=== PATIENT | male | born 1950 | race Hispanic/Latino ===

== ENCOUNTER 2021-08-17 21:02 | Emergency (ER) | payer MEDICARE ==
[~2021-08-17] VITALS: Ht 180.3 cm; Wt 97.5 kg
[2021-08-17] MEDS ORDERED: DEXAMETHASONE SOD PHOS 10 MG/1 ML VIAL IV STA (21:05)
[2021-08-17 21:40] LABS: HEMATOCRIT 44.2 % (38.2-49.6); HEMOGLOBIN 14.6 g/dL (14.0-18.0); LYMPHOCYTES # (AUTO) 0.6 (1.0-3.2); LYMPHOCYTES % 11.2 % (18.0-39.1); MEAN CORPUSCULAR HEMOGLOBIN 30.7 pg (28-32); MEAN CORPUSCULAR VOLUME 93.1 fL (81-99); MONOCYTES # (AUTO) 0.2 (0.2-0.8); MONOCYTES % 4.2 % (4.4-11.3); NEUTROPHILS # (AUTO) 4.2 (2.1-6.9); NEUTROPHILS % 84.4 % (38.7-80.0); PLATELET COUNT 169 x10e3/uL (140-360); RED BLOOD COUNT 4.75 x10e6/uL (4.3-5.7); RED CELL DISTRIBUTION WIDTH 13.4 % (11.7-14.4)
[2021-08-17 21:56] LABS: ALBUMIN 3.4 g/dL (3.5-5.0); ALBUMIN/GLOBULIN RATIO 1.1 (0.8-2.0); CALCIUM 8.2 mg/dL (8.4-10.2); CREATININE, SERUM 1.04 mg/dL (0.72-1.25)
[2021-08-17 22:02] LABS: CREATINE KINASE MB 1.2 ng/mL (0-5.0)
[2021-08-17] MEDS ORDERED: ONDANSETRON HCL INJ 2MG/ML 2ML 2 MG/ML VIAL IV STA (22:30)
[2021-08-17] MEDS ORDERED: ONDANSETRON HCL INJ 2MG/ML 2ML 2 MG/ML VIAL ONE (22:39)
[2021-08-18 00:58] LABS: CREATINE KINASE MB 1.3 ng/mL (0-5.0)
[2021-08-18 02:15] VITALS: BP 107/77
[2021-08-18] MEDS ORDERED: METOPROLOL TARTRATE 50 MG TAB ONE (03:57)
[2021-08-19] MEDS ORDERED: ATORVASTATIN PO (19:57)
[2021-08-19] MEDS ORDERED: METOPROLOL SUCC25 MG PO (19:57)
[2021-08-19] MEDS ORDERED: ZETIA10 MG PO (19:57)
== END 2021-08-18 02:10 | disposition home or self-care (01) ==
LOC: EDSEX 21:02 → ER 21:30
DX: U07.1 COVID-19 (principal); R07.89 Other chest pain; R06.02 Shortness of breath; R53.1 Weakness; I25.2 Old myocardial infarction
CPT/HCPCS: 36415; 71045; 80053; 82550; 82553; 83880; 84484; 85025; 93005; 99284; J0456; J1100; J2405; J7050

== ENCOUNTER 2021-08-19 10:00 | Inpatient (IN) | payer MEDICARE ==
[~2021-08-19] VITALS: Ht 185.4 cm; Wt 101.3 kg
[2021-08-19 10:58] LABS: BASOPHILS % 0.2 % (0.0-1.0); HEMATOCRIT 45.5 % (38.2-49.6); LYMPHOCYTES # (AUTO) 0.9 (1.0-3.2); LYMPHOCYTES % 15.6 % (18.0-39.1); MEAN CORPUSCULAR HEMOGLOBIN 30.2 pg (28-32); MEAN CORPUSCULAR VOLUME 91.5 fL (81-99); MONOCYTES # (AUTO) 0.3 (0.2-0.8); MONOCYTES % 4.7 % (4.4-11.3); NEUTROPHILS # (AUTO) 4.7 (2.1-6.9); NEUTROPHILS % 79.2 % (38.7-80.0); PLATELET COUNT 222 x10e3/uL (140-360); RED BLOOD COUNT 4.97 x10e6/uL (4.3-5.7); RED CELL DISTRIBUTION WIDTH 13.6 % (11.7-14.4)
[2021-08-19 11:11] LABS: INR 0.88; PROTHROMBIN TIME 12.7 seconds (11.9-14.5)
[2021-08-19 11:19] LABS: ALBUMIN 3.5 g/dL (3.5-5.0); ANION GAP 14.7 mmol/L (8-16); CREATININE, SERUM 1.25 mg/dL (0.72-1.25); POTASSIUM 3.7 mmol/L (3.5-5.1)
[2021-08-19 11:26] LABS: CREATINE KINASE MB 1.5 ng/mL (0-5.0)
[2021-08-19] MEDS ORDERED: ONDANSETRON HCL INJ 2MG/ML 2ML 2 MG/ML VIAL IV PRN (11:30)
[2021-08-19] MEDS ORDERED: DEXAMETHASONE SOD PHOS 10 MG/1 ML VIAL IV NR (13:45)
[2021-08-19 16:00] VITALS: BP 130/71
[2021-08-19 17:46] VITALS: BP 130/71
[2021-08-19 17:58] VITALS: BP 130/71
[2021-08-19] MEDS ORDERED: ZETIA10 MG PO (19:57)
[2021-08-19] MEDS ORDERED: METOPROLOL SUCC25 MG PO (19:57)
[2021-08-19] MEDS ORDERED: ATORVASTATIN PO (19:57)
[2021-08-19 20:00] VITALS: BP 128/74
[2021-08-19 21:00] VITALS: BP 128/74
[2021-08-20] VITALS (8 sets, daily range): BP systolic 124–143; BP diastolic 67–77
[2021-08-20 06:23] LABS: HEMATOCRIT 42.2 % (38.2-49.6); LYMPHOCYTES # (AUTO) 0.7 (1.0-3.2); LYMPHOCYTES % 10.4 % (18.0-39.1); MEAN CORPUSCULAR HEMOGLOBIN 30.2 pg (28-32); MEAN CORPUSCULAR HGB CONC 33.2 g/dL (31-35); MEAN CORPUSCULAR VOLUME 90.9 fL (81-99); MONOCYTES # (AUTO) 0.4 (0.2-0.8); MONOCYTES % 6.1 % (4.4-11.3); NEUTROPHILS # (AUTO) 5.2 (2.1-6.9); PLATELET COUNT 246 x10e3/uL (140-360); RED BLOOD COUNT 4.64 x10e6/uL (4.3-5.7); RED CELL DISTRIBUTION WIDTH 13.7 % (11.7-14.4)
[2021-08-20 07:06] LABS: ALBUMIN 3.1 g/dL (3.5-5.0); ALBUMIN/GLOBULIN RATIO 0.8 (0.8-2.0); ANION GAP 13.2 mmol/L (8-16); CALCIUM 8.8 mg/dL (8.4-10.2); CHOL/HDL RATIO 2.7 (3.9-4.7); CREATININE, SERUM 1.19 mg/dL (0.72-1.25); POTASSIUM 4.2 mmol/L (3.5-5.1)
[2021-08-20 07:07] LABS: CREATINE KINASE 96 IU/L (30-200)
[2021-08-20] MEDS: DEXAMETHASONE SOD PHOS 10 MG/1 ML VIAL IV SCH (09:26)
[2021-08-20 13:54] LABS: CREATINE KINASE MB 1.4 ng/mL (0-5.0)
[2021-08-20] MEDS: METOPROLOL SUCCINATE 25 MG TAB XL PO SCH (14:25)
[2021-08-20] MEDS: ATORVASTATIN 40 MG TAB PO SCH (14:26)
[2021-08-20] MEDS ORDERED: SODIUM CHLORIDE 0.9% 50ML 50 ML ONE (14:31)
[2021-08-20] MEDS ORDERED: ENOXAPARIN SOD INJ 40 MG/0.4 ML SYR SC SCH (17:00)
[2021-08-20] MEDS ORDERED: ZOLPIDEM TARTRATE 5 MG TAB PO PRN (21:00)
[2021-08-21] VITALS (8 sets, daily range): BP systolic 109–166; BP diastolic 68–87
[2021-08-21 05:37] LABS: BASOPHILS % 0.1 % (0.0-1.0); HEMATOCRIT 43.4 % (38.2-49.6); HEMOGLOBIN 14.6 g/dL (14.0-18.0); LYMPHOCYTES % 12.3 % (18.0-39.1); MEAN CORPUSCULAR HEMOGLOBIN 30.7 pg (28-32); MEAN CORPUSCULAR HGB CONC 33.6 g/dL (31-35); MEAN CORPUSCULAR VOLUME 91.2 fL (81-99); MONOCYTES # (AUTO) 0.6 (0.2-0.8); MONOCYTES % 7.7 % (4.4-11.3); NEUTROPHILS # (AUTO) 6.6 (2.1-6.9); NEUTROPHILS % 79.4 % (38.7-80.0); PLATELET COUNT 275 x10e3/uL (140-360); RED BLOOD COUNT 4.76 x10e6/uL (4.3-5.7); RED CELL DISTRIBUTION WIDTH 13.5 % (11.7-14.4)
[2021-08-21 06:04] LABS: ALBUMIN/GLOBULIN RATIO 0.8 (0.8-2.0); ANION GAP 14.1 mmol/L (8-16); CREATININE, SERUM 0.85 mg/dL (0.72-1.25); POTASSIUM 4.1 mmol/L (3.5-5.1)
[2021-08-21] MEDS ORDERED: ONDANSETRON HCL 4 MG ORAL DISINTEGRATING TAB PO PRN (08:00)
[2021-08-21] MEDS ORDERED: EZETIMIBE 10 MG TAB PO SCH (09:00)
[2021-08-21] MEDS: ATORVASTATIN 40 MG TAB PO SCH (09:15)
[2021-08-21] MEDS: DEXAMETHASONE SOD PHOS 10 MG/1 ML VIAL IV SCH (09:15)
[2021-08-21] MEDS: METOPROLOL SUCCINATE 25 MG TAB XL PO SCH (09:15)
[2021-08-21] MEDS ORDERED: ONDANSETRON HCL INJ 2MG/ML 2ML 2 MG/ML VIAL IV PRN (09:45)
[2021-08-21] MEDS: METOPROLOL TARTRATE 50 MG TAB PO SCH ×2 (09:45→16:44)
[2021-08-21] MEDS ORDERED: HYDRALAZINE HCL 25 MG TAB PO PRN (10:00)
[2021-08-21] MEDS: ASCORBIC ACID 500 MG TAB PO SCH ×2 (11:06→16:44)
[2021-08-21] MEDS: CHOLECALCIFEROL 1,000 UNIT TAB PO SCH (11:06)
[2021-08-21] MEDS: LACTOBACILLUS ACIDOPHILUS CAPSULE PO SCH ×3 (11:06→21:45)
[2021-08-21] MEDS: PIPERACILLIN/TAZOBACTAM 3.375 GM in SODIUM CHLORIDE 0.9% 50ML 50 ML IV SCH ×2 (11:06→16:45)
[2021-08-21] MEDS: MAGNESIUM OXIDE 400 MG TAB PO SCH ×2 (11:10→16:44)
[2021-08-21] MEDS: AZITHROMYCIN 250 MG TAB PO SCH (14:32)
[2021-08-21] MEDS: ENOXAPARIN SOD INJ 40 MG/0.4 ML SYR SC SCH (21:45)
[2021-08-22] VITALS (8 sets, daily range): BP systolic 106–153; BP diastolic 55–77
[2021-08-22] MEDS: PIPERACILLIN/TAZOBACTAM 3.375 GM in SODIUM CHLORIDE 0.9% 50ML 50 ML IV SCH ×3 (02:20→17:39)
[2021-08-22] MEDS: ASCORBIC ACID 500 MG TAB PO SCH ×2 (09:44→17:36)
[2021-08-22] MEDS: ENOXAPARIN SOD INJ 40 MG/0.4 ML SYR SC SCH ×2 (09:44→20:09)
[2021-08-22] MEDS: CHOLECALCIFEROL 1,000 UNIT TAB PO SCH (09:44)
[2021-08-22] MEDS: LACTOBACILLUS ACIDOPHILUS CAPSULE PO SCH ×3 (09:44→20:09)
[2021-08-22] MEDS: METOPROLOL TARTRATE 50 MG TAB PO SCH ×2 (09:45→17:35)
[2021-08-22] MEDS: DEXAMETHASONE SOD PHOS 10 MG/1 ML VIAL IV SCH (09:45)
[2021-08-22] MEDS: MAGNESIUM OXIDE 400 MG TAB PO SCH ×2 (09:45→17:36)
[2021-08-22] MEDS: AZITHROMYCIN 250 MG TAB PO SCH (14:30)
[2021-08-22] MEDS ORDERED: SODIUM CHLORIDE 0.9% 250ML 250 ML ONE (18:03)
[2021-08-22] MEDS ORDERED: ONDANSETRON HCL 4 MG ORAL DISINTEGRATING TAB PO PRN (18:45)
[2021-08-22] MEDS: GUAIFENESIN/CODEINE 5 ML LIQD PO PRN (20:09)
[2021-08-23] VITALS (7 sets, daily range): BP systolic 121–156; BP diastolic 64–89
[2021-08-23] MEDS: PIPERACILLIN/TAZOBACTAM 3.375 GM in SODIUM CHLORIDE 0.9% 50ML 50 ML IV SCH ×3 (02:07→17:31)
[2021-08-23] MEDS: GUAIFENESIN/CODEINE 5 ML LIQD PO PRN (02:48)
[2021-08-23] MEDS: DEXAMETHASONE SOD PHOS 10 MG/1 ML VIAL IV SCH (09:24)
[2021-08-23] MEDS: CHOLECALCIFEROL 1,000 UNIT TAB PO SCH (09:25)
[2021-08-23] MEDS: LACTOBACILLUS ACIDOPHILUS CAPSULE PO SCH ×3 (09:25→21:30)
[2021-08-23] MEDS: ENOXAPARIN SOD INJ 40 MG/0.4 ML SYR SC SCH ×2 (09:25→21:30)
[2021-08-23] MEDS: MAGNESIUM OXIDE 400 MG TAB PO SCH ×2 (09:25→17:00)
[2021-08-23] MEDS: ASCORBIC ACID 500 MG TAB PO SCH ×2 (09:25→17:31)
[2021-08-23] MEDS: METOPROLOL TARTRATE 50 MG TAB PO SCH ×2 (09:25→17:31)
[2021-08-23] MEDS: AZITHROMYCIN 250 MG TAB PO SCH (14:08)
[2021-08-24] VITALS (8 sets, daily range): BP systolic 117–150; BP diastolic 67–89
[2021-08-24] MEDS: PIPERACILLIN/TAZOBACTAM 3.375 GM in SODIUM CHLORIDE 0.9% 50ML 50 ML IV SCH ×3 (02:08→17:20)
[2021-08-24 06:22] LABS: BASOPHILS % 0.1 % (0.0-1.0); EOSINOPHILS % 0.3 % (0.0-6.0); HEMATOCRIT 45.4 % (38.2-49.6); HEMOGLOBIN 14.9 g/dL (14.0-18.0); LYMPHOCYTES # (AUTO) 0.9 (1.0-3.2); LYMPHOCYTES % 8.4 % (18.0-39.1); MEAN CORPUSCULAR HGB CONC 32.8 g/dL (31-35); MEAN CORPUSCULAR VOLUME 91.5 fL (81-99); MONOCYTES # (AUTO) 0.4 (0.2-0.8); NEUTROPHILS # (AUTO) 9.2 (2.1-6.9); NEUTROPHILS % 84.5 % (38.7-80.0); PLATELET COUNT 367 x10e3/uL (140-360); RED BLOOD COUNT 4.96 x10e6/uL (4.3-5.7); RED CELL DISTRIBUTION WIDTH 13.4 % (11.7-14.4)
[2021-08-24 06:43] LABS: CALCIUM 9.2 mg/dL (8.4-10.2); CREATININE, SERUM 0.91 mg/dL (0.72-1.25)
[2021-08-24] MEDS: DEXAMETHASONE SOD PHOS 10 MG/1 ML VIAL IV SCH (08:44)
[2021-08-24] MEDS: ENOXAPARIN SOD INJ 40 MG/0.4 ML SYR SC SCH ×2 (08:45→21:00)
[2021-08-24] MEDS: METOPROLOL TARTRATE 50 MG TAB PO SCH ×2 (08:45→17:20)
[2021-08-24] MEDS: ASCORBIC ACID 500 MG TAB PO SCH ×2 (08:45→17:20)
[2021-08-24] MEDS: LACTOBACILLUS ACIDOPHILUS CAPSULE PO SCH ×3 (08:45→21:00)
[2021-08-24] MEDS: MAGNESIUM OXIDE 400 MG TAB PO SCH ×2 (08:45→17:00)
[2021-08-24] MEDS: CHOLECALCIFEROL 1,000 UNIT TAB PO SCH (08:45)
[2021-08-25] VITALS (7 sets, daily range): BP systolic 128–164; BP diastolic 67–91
[2021-08-25] MEDS: PIPERACILLIN/TAZOBACTAM 3.375 GM in SODIUM CHLORIDE 0.9% 50ML 50 ML IV SCH ×3 (02:33→18:27)
[2021-08-25] MEDS: GUAIFENESIN/CODEINE 5 ML LIQD PO PRN ×2 (02:56→16:04)
[2021-08-25 05:50] LABS: BASOPHILS % 0.2 % (0.0-1.0); EOSINOPHILS # (AUTO) 0.1 (0.0-0.4); EOSINOPHILS % 0.8 % (0.0-6.0); HEMATOCRIT 42.5 % (38.2-49.6); HEMOGLOBIN 13.9 g/dL (14.0-18.0); LYMPHOCYTES # (AUTO) 0.6 (1.0-3.2); LYMPHOCYTES % 5.3 % (18.0-39.1); MEAN CORPUSCULAR HGB CONC 32.7 g/dL (31-35); MEAN CORPUSCULAR VOLUME 91.8 fL (81-99); MONOCYTES # (AUTO) 0.3 (0.2-0.8); MONOCYTES % 2.6 % (4.4-11.3); NEUTROPHILS # (AUTO) 9.5 (2.1-6.9); PLATELET COUNT 365 x10e3/uL (140-360); RED BLOOD COUNT 4.63 x10e6/uL (4.3-5.7); RED CELL DISTRIBUTION WIDTH 13.3 % (11.7-14.4)
[2021-08-25 06:33] LABS: ANION GAP 13.8 mmol/L (8-16); CALCIUM 8.9 mg/dL (8.4-10.2); CREATININE, SERUM 0.8 mg/dL (0.72-1.25); POTASSIUM 3.8 mmol/L (3.5-5.1)
[2021-08-25] MEDS: MAGNESIUM OXIDE 400 MG TAB PO SCH ×3 (09:00→17:00)
[2021-08-25] MEDS: METOPROLOL TARTRATE 50 MG TAB PO SCH ×2 (11:26→17:52)
[2021-08-25] MEDS: ASCORBIC ACID 500 MG TAB PO SCH ×2 (11:26→17:52)
[2021-08-25] MEDS: DEXAMETHASONE SOD PHOS 10 MG/1 ML VIAL IV SCH (11:26)
[2021-08-25] MEDS: CHOLECALCIFEROL 1,000 UNIT TAB PO SCH (11:26)
[2021-08-25] MEDS: LACTOBACILLUS ACIDOPHILUS CAPSULE PO SCH ×3 (11:26→21:00)
[2021-08-25] MEDS: ENOXAPARIN SOD INJ 40 MG/0.4 ML SYR SC SCH ×2 (11:27→21:00)
[2021-08-26] VITALS (11 sets, daily range): BP systolic 94–132; BP diastolic 59–99
[2021-08-26] MEDS: PIPERACILLIN/TAZOBACTAM 3.375 GM in SODIUM CHLORIDE 0.9% 50ML 50 ML IV SCH ×3 (02:00→18:30)
[2021-08-26 05:57] LABS: BASOPHILS % 0.2 % (0.0-1.0); EOSINOPHILS # (AUTO) 0.1 (0.0-0.4); EOSINOPHILS % 1.1 % (0.0-6.0); HEMATOCRIT 42.9 % (38.2-49.6); HEMOGLOBIN 14.3 g/dL (14.0-18.0); LYMPHOCYTES # (AUTO) 0.4 (1.0-3.2); LYMPHOCYTES % 3.5 % (18.0-39.1); MEAN CORPUSCULAR HEMOGLOBIN 30.7 pg (28-32); MEAN CORPUSCULAR HGB CONC 33.3 g/dL (31-35); MEAN CORPUSCULAR VOLUME 92.1 fL (81-99); MONOCYTES # (AUTO) 0.3 (0.2-0.8); MONOCYTES % 2.1 % (4.4-11.3); NEUTROPHILS # (AUTO) 11.5 (2.1-6.9); PLATELET COUNT 358 x10e3/uL (140-360); RED BLOOD COUNT 4.66 x10e6/uL (4.3-5.7); RED CELL DISTRIBUTION WIDTH 13.3 % (11.7-14.4)
[2021-08-26 06:36] LABS: ALBUMIN 2.6 g/dL (3.5-5.0); ALBUMIN/GLOBULIN RATIO 0.6 (0.8-2.0); ANION GAP 17.1 mmol/L (8-16); CREATININE, SERUM 0.83 mg/dL (0.72-1.25); POTASSIUM 4.1 mmol/L (3.5-5.1)
[2021-08-26] MEDS: MAGNESIUM OXIDE 400 MG TAB PO SCH ×2 (09:00→17:00)
[2021-08-26] MEDS: CHOLECALCIFEROL 1,000 UNIT TAB PO SCH (09:15)
[2021-08-26] MEDS: ENOXAPARIN SOD INJ 40 MG/0.4 ML SYR SC SCH ×2 (09:15→21:26)
[2021-08-26] MEDS: METOPROLOL TARTRATE 50 MG TAB PO SCH ×2 (09:15→18:30)
[2021-08-26] MEDS: ASCORBIC ACID 500 MG TAB PO SCH ×2 (09:15→18:01)
[2021-08-26] MEDS: LACTOBACILLUS ACIDOPHILUS CAPSULE PO SCH ×3 (09:15→18:31)
[2021-08-27] VITALS (9 sets, daily range): BP systolic 101–133; BP diastolic 66–88
[2021-08-27] MEDS: PIPERACILLIN/TAZOBACTAM 3.375 GM in SODIUM CHLORIDE 0.9% 50ML 50 ML IV SCH ×3 (02:29→18:19)
[2021-08-27 06:11] LABS: BASOPHILS % 0.2 % (0.0-1.0); EOSINOPHILS # (AUTO) 0.2 (0.0-0.4); EOSINOPHILS % 1.9 % (0.0-6.0); HEMATOCRIT 43.2 % (38.2-49.6); HEMOGLOBIN 14.7 g/dL (14.0-18.0); LYMPHOCYTES # (AUTO) 0.5 (1.0-3.2); MEAN CORPUSCULAR HEMOGLOBIN 30.4 pg (28-32); MEAN CORPUSCULAR VOLUME 89.4 fL (81-99); MONOCYTES # (AUTO) 0.2 (0.2-0.8); MONOCYTES % 2.1 % (4.4-11.3); NEUTROPHILS % 89.6 % (38.7-80.0); PLATELET COUNT 353 x10e3/uL (140-360); RED BLOOD COUNT 4.83 x10e6/uL (4.3-5.7); RED CELL DISTRIBUTION WIDTH 13.3 % (11.7-14.4)
[2021-08-27] MEDS: ASCORBIC ACID 500 MG TAB PO SCH ×2 (09:36→18:19)
[2021-08-27] MEDS: MAGNESIUM OXIDE 400 MG TAB PO SCH ×2 (09:36→18:19)
[2021-08-27] MEDS: ENOXAPARIN SOD INJ 40 MG/0.4 ML SYR SC SCH ×2 (09:36→21:27)
[2021-08-27] MEDS: LACTOBACILLUS ACIDOPHILUS CAPSULE PO SCH ×3 (09:36→21:27)
[2021-08-27] MEDS: CHOLECALCIFEROL 1,000 UNIT TAB PO SCH (09:36)
[2021-08-27] MEDS: METOPROLOL TARTRATE 50 MG TAB PO SCH ×2 (09:37→18:20)
[2021-08-27] MEDS ORDERED: LACTATED RINGER'S 500 ML INJ ONE (15:15)
[2021-08-27] MEDS: DEXAMETHASONE SOD PHOS 10 MG/1 ML VIAL IV SCH (18:19)
[2021-08-28] VITALS (24 sets, daily range): BP systolic 106–139; BP diastolic 65–83
[2021-08-28] MEDS: PIPERACILLIN/TAZOBACTAM 3.375 GM in SODIUM CHLORIDE 0.9% 50ML 50 ML IV SCH ×3 (01:50→16:26)
[2021-08-28] MEDS ORDERED: SODIUM CHLORIDE 0.9% 1000ML 1,000 ML ONE (04:18)
[2021-08-28 05:57] LABS: BASOPHILS % 0.1 % (0.0-1.0); HEMATOCRIT 41.6 % (38.2-49.6); HEMOGLOBIN 13.5 g/dL (14.0-18.0); LYMPHOCYTES # (AUTO) 0.3 (1.0-3.2); LYMPHOCYTES % 4.6 % (18.0-39.1); MEAN CORPUSCULAR HGB CONC 32.5 g/dL (31-35); MEAN CORPUSCULAR VOLUME 92.4 fL (81-99); MONOCYTES # (AUTO) 0.1 (0.2-0.8); MONOCYTES % 1.7 % (4.4-11.3); NEUTROPHILS # (AUTO) 6.9 (2.1-6.9); PLATELET COUNT 325 x10e3/uL (140-360); RED CELL DISTRIBUTION WIDTH 13.3 % (11.7-14.4)
[2021-08-28 06:27] LABS: ALBUMIN 2.1 g/dL (3.5-5.0); ALBUMIN/GLOBULIN RATIO 0.5 (0.8-2.0); ANION GAP 10.2 mmol/L (8-16); CALCIUM 8.7 mg/dL (8.4-10.2); CREATININE, SERUM 0.86 mg/dL (0.72-1.25); POTASSIUM 4.2 mmol/L (3.5-5.1)
[2021-08-28] MEDS: METOPROLOL TARTRATE 50 MG TAB PO SCH ×2 (07:30→16:25)
[2021-08-28] MEDS: LACTOBACILLUS ACIDOPHILUS CAPSULE PO SCH ×3 (07:31→20:42)
[2021-08-28] MEDS: CHOLECALCIFEROL 1,000 UNIT TAB PO SCH (07:31)
[2021-08-28] MEDS: MAGNESIUM OXIDE 400 MG TAB PO SCH ×2 (07:31→16:25)
[2021-08-28] MEDS: ASCORBIC ACID 500 MG TAB PO SCH ×2 (07:31→16:25)
[2021-08-28] MEDS: ENOXAPARIN SOD INJ 40 MG/0.4 ML SYR SC SCH ×2 (07:31→20:42)
[2021-08-28] MEDS: DEXAMETHASONE SOD PHOS 10 MG/1 ML VIAL IV SCH (16:25)
[2021-08-28] MEDS ORDERED: TEMAZEPAM 7.5 MG CAP PO PRN (21:30)
[2021-08-29] VITALS (16 sets, daily range): BP systolic 107–139; BP diastolic 64–74
[2021-08-29] MEDS: PIPERACILLIN/TAZOBACTAM 3.375 GM in SODIUM CHLORIDE 0.9% 50ML 50 ML IV SCH ×2 (02:40→09:12)
[2021-08-29 06:19] LABS: BASOPHILS % 0.1 % (0.0-1.0); HEMATOCRIT 39.4 % (38.2-49.6); LYMPHOCYTES # (AUTO) 0.4 (1.0-3.2); LYMPHOCYTES % 3.8 % (18.0-39.1); MEAN CORPUSCULAR HEMOGLOBIN 30.4 pg (28-32); MEAN CORPUSCULAR VOLUME 92.3 fL (81-99); MONOCYTES # (AUTO) 0.3 (0.2-0.8); MONOCYTES % 2.5 % (4.4-11.3); NEUTROPHILS # (AUTO) 9.3 (2.1-6.9); NEUTROPHILS % 92.8 % (38.7-80.0); PLATELET COUNT 361 x10e3/uL (140-360); RED BLOOD COUNT 4.27 x10e6/uL (4.3-5.7); RED CELL DISTRIBUTION WIDTH 13.2 % (11.7-14.4)
[2021-08-29 07:21] LABS: ALBUMIN 2.1 g/dL (3.5-5.0); ALBUMIN/GLOBULIN RATIO 0.5 (0.8-2.0); ANION GAP 10.3 mmol/L (8-16); CALCIUM 8.6 mg/dL (8.4-10.2); CREATININE, SERUM 0.79 mg/dL (0.72-1.25); POTASSIUM 4.3 mmol/L (3.5-5.1)
[2021-08-29] MEDS: METOPROLOL TARTRATE 50 MG TAB PO SCH ×2 (09:11→16:49)
[2021-08-29] MEDS: LACTOBACILLUS ACIDOPHILUS CAPSULE PO SCH ×3 (09:11→20:53)
[2021-08-29] MEDS: ASCORBIC ACID 500 MG TAB PO SCH ×2 (09:11→16:49)
[2021-08-29] MEDS: MAGNESIUM OXIDE 400 MG TAB PO SCH ×2 (09:11→16:49)
[2021-08-29] MEDS: CHOLECALCIFEROL 1,000 UNIT TAB PO SCH (09:11)
[2021-08-29] MEDS: ENOXAPARIN SOD INJ 40 MG/0.4 ML SYR SC SCH ×2 (09:11→20:53)
[2021-08-29] MEDS ORDERED: VECURONIUM BROMIDE FOR INJ 20 MG VIAL ONE (12:59)
[2021-08-29] MEDS ORDERED: WATER STERILE 10 ML VIAL ONE (12:59)
[2021-08-29] MEDS ORDERED: MIDAZOLAM HCL 2 MG/2 ML VIAL ONE (12:59)
[2021-08-29] MEDS ORDERED: ETOMIDATE 2 MG/ML 10 ML INJ IV ONE (12:59)
[2021-08-29] MEDS ORDERED: SUCCINYLCHOLINE CHLORIDE 20 MG/ML 10ML VIAL ONE (12:59)
[2021-08-29] MEDS ORDERED: HYDROXYZINE HCL 25 MG TAB PO PRN (19:00)
[2021-08-30] VITALS (17 sets, daily range): BP systolic 100–146; BP diastolic 56–76
[2021-08-30 04:45] LABS: BASOPHILS % 0.1 % (0.0-1.0); EOSINOPHILS # (AUTO) 0.1 (0.0-0.4); EOSINOPHILS % 0.8 % (0.0-6.0); HEMATOCRIT 40.7 % (38.2-49.6); HEMOGLOBIN 13.3 g/dL (14.0-18.0); LYMPHOCYTES # (AUTO) 0.4 (1.0-3.2); LYMPHOCYTES % 3.7 % (18.0-39.1); MEAN CORPUSCULAR HEMOGLOBIN 30.1 pg (28-32); MEAN CORPUSCULAR HGB CONC 32.7 g/dL (31-35); MEAN CORPUSCULAR VOLUME 92.1 fL (81-99); MONOCYTES # (AUTO) 0.4 (0.2-0.8); MONOCYTES % 3.1 % (4.4-11.3); NEUTROPHILS # (AUTO) 10.9 (2.1-6.9); NEUTROPHILS % 91.4 % (38.7-80.0); PLATELET COUNT 382 x10e3/uL (140-360); RED BLOOD COUNT 4.42 x10e6/uL (4.3-5.7); RED CELL DISTRIBUTION WIDTH 13.2 % (11.7-14.4)
[2021-08-30 05:05] LABS: ALBUMIN 2.1 g/dL (3.5-5.0); ALBUMIN/GLOBULIN RATIO 0.5 (0.8-2.0); ANION GAP 12.1 mmol/L (8-16); CALCIUM 8.4 mg/dL (8.4-10.2); CREATININE, SERUM 0.75 mg/dL (0.72-1.25); POTASSIUM 4.1 mmol/L (3.5-5.1)
[2021-08-30] MEDS: METOPROLOL TARTRATE 50 MG TAB PO SCH ×2 (10:15→17:00)
[2021-08-30] MEDS: MAGNESIUM OXIDE 400 MG TAB PO SCH (10:15)
[2021-08-30] MEDS: ASCORBIC ACID 500 MG TAB PO SCH (10:15)
[2021-08-30] MEDS: CHOLECALCIFEROL 1,000 UNIT TAB PO SCH (10:15)
[2021-08-30] MEDS: LACTOBACILLUS ACIDOPHILUS CAPSULE PO SCH (10:15)
[2021-08-30] MEDS: ENOXAPARIN SOD INJ 40 MG/0.4 ML SYR SC SCH (10:15)
[2021-08-30] MEDS: METOPROLOL TARTRATE INJ 1 MG/ML VIAL IV PRN (11:14)
[2021-08-30] MEDS ORDERED: ONDANSETRON HCL INJ 2MG/ML 2ML 2 MG/ML VIAL IV PRN (11:15)
[2021-08-30] MEDS ORDERED: DEXMEDETOMIDINE 400MCG/NS100ML 100 ML IV ONE (11:28)
[2021-08-30] MEDS ORDERED: SODIUM CHLORIDE 0.9% 1000ML 1,000 ML IV ONE (11:45)
[2021-08-30] MEDS: DEXAMETHASONE SOD PHOS 10 MG/1 ML VIAL IV SCH (12:17)
[2021-08-30] MEDS: FOLIC ACID MDV 1 MG in SODIUM CHLORIDE 0.9% 50ML 50 ML IV SCH (12:18)
[2021-08-30] MEDS: DOXYCYCLINE HYCLATE 100 MG in SODIUM CHLORIDE 0.9% 100 ML IV SCH ×2 (12:18→23:22)
[2021-08-30] MEDS: THIAMINE HCL INJ 100 MG/ML 2ML VIAL IV SCH (12:18)
[2021-08-30] MEDS: PIPERACILLIN/TAZOBACTAM 3.375 GM in SODIUM CHLORIDE 0.9% 50ML 50 ML IV SCH ×2 (13:00→20:28)
[2021-08-30] MEDS: FAMOTIDINE 20 MG/2 ML VIAL IV SCH (17:30)
[2021-08-30] MEDS: ENOXAPARIN SOD INJ 60 MG/0.6 ML SYR SC SCH (20:28)
[2021-08-30] MEDS: DEXMEDETOMIDINE 400MCG/NS100ML 100 ML IV PRN (22:41)
[2021-08-31] VITALS (25 sets, daily range): BP systolic 93–133; BP diastolic 45–71
[2021-08-31] MEDS: DEXMEDETOMIDINE 400MCG/NS100ML 100 ML IV PRN ×2 (02:06→09:46)
[2021-08-31] MEDS: PIPERACILLIN/TAZOBACTAM 3.375 GM in SODIUM CHLORIDE 0.9% 50ML 50 ML IV SCH ×3 (04:27→20:27)
[2021-08-31 07:45] LABS: BASOPHILS % 0.1 % (0.0-1.0); EOSINOPHILS # (AUTO) 0.1 (0.0-0.4); HEMATOCRIT 41.6 % (38.2-49.6); HEMOGLOBIN 13.7 g/dL (14.0-18.0); LYMPHOCYTES # (AUTO) 0.5 (1.0-3.2); MEAN CORPUSCULAR HEMOGLOBIN 30.6 pg (28-32); MEAN CORPUSCULAR HGB CONC 32.9 g/dL (31-35); MEAN CORPUSCULAR VOLUME 92.9 fL (81-99); MONOCYTES # (AUTO) 0.2 (0.2-0.8); MONOCYTES % 1.7 % (4.4-11.3); NEUTROPHILS # (AUTO) 12.4 (2.1-6.9); NEUTROPHILS % 92.4 % (38.7-80.0); PLATELET COUNT 317 x10e3/uL (140-360); RED BLOOD COUNT 4.48 x10e6/uL (4.3-5.7); RED CELL DISTRIBUTION WIDTH 13.2 % (11.7-14.4)
[2021-08-31 08:08] LABS: ALBUMIN 1.8 g/dL (3.5-5.0); ALBUMIN/GLOBULIN RATIO 0.4 (0.8-2.0); ANION GAP 13.4 mmol/L (8-16); CALCIUM 8.7 mg/dL (8.4-10.2); CREATININE, SERUM 0.8 mg/dL (0.72-1.25); POTASSIUM 4.4 mmol/L (3.5-5.1)
[2021-08-31] MEDS ORDERED: SODIUM CHLORIDE 0.9% 50ML 50 ML ONE (08:17)
[2021-08-31] MEDS: METOPROLOL TARTRATE 50 MG TAB PO SCH ×2 (09:00→17:00)
[2021-08-31] MEDS: THIAMINE HCL INJ 100 MG/ML 2ML VIAL IV SCH (09:41)
[2021-08-31] MEDS: DEXAMETHASONE SOD PHOS 10 MG/1 ML VIAL IV SCH (09:41)
[2021-08-31] MEDS: FAMOTIDINE 20 MG/2 ML VIAL IV SCH ×2 (09:41→18:14)
[2021-08-31] MEDS: ENOXAPARIN SOD INJ 60 MG/0.6 ML SYR SC SCH ×2 (09:42→20:27)
[2021-08-31] MEDS: FOLIC ACID MDV 1 MG in SODIUM CHLORIDE 0.9% 50ML 50 ML IV SCH (10:51)
[2021-08-31] MEDS: DOXYCYCLINE HYCLATE 100 MG in SODIUM CHLORIDE 0.9% 100 ML IV SCH ×2 (11:14→23:25)
[2021-08-31] MEDS ORDERED: SODIUM CHLORIDE 0.9% 1000ML 1,000 ML ONE (14:47)
[2021-08-31] MEDS: FENTANYL 2000MCG/NS 250 250 ML IV SCH (15:11)
[2021-08-31] MEDS: MIDAZOLAM HCL 5MG/ML 10ML VIAL 100 ML IV PRN ×2 (15:11→23:45)
[2021-08-31] MEDS: ROCURONIUM 1250MG/NS 250 250 ML IV PRN (15:15)
[2021-08-31] MEDS ORDERED: SODIUM CHLORIDE 0.9% 500ML 500 ML IV ONE (15:15)
[2021-08-31 16:52] LABS: ABG HCO3 22 mmol/L (22-26); ABG PCO2 51 mmHg (35-45); ABG PH 7.25 (7.35-7.45); ABG PO2 75 mmHg (80-105); ABG TCO2 24
[2021-08-31] MEDS: METOPROLOL TARTRATE INJ 1 MG/ML VIAL IV PRN (22:45)
[2021-09-01] VITALS (24 sets, daily range): BP systolic 2–126; BP diastolic 48–74
[2021-09-01] MEDS: METOPROLOL TARTRATE INJ 1 MG/ML VIAL IV PRN ×2 (02:15→05:50)
[2021-09-01] MEDS: PIPERACILLIN/TAZOBACTAM 3.375 GM in SODIUM CHLORIDE 0.9% 50ML 50 ML IV SCH ×3 (04:17→20:30)
[2021-09-01] MEDS: FENTANYL 2000MCG/NS 250 250 ML IV SCH ×3 (05:01→20:31)
[2021-09-01 05:18] LABS: BASOPHILS % 0.1 % (0.0-1.0); HEMATOCRIT 45.7 % (38.2-49.6); HEMOGLOBIN 14.4 g/dL (14.0-18.0); LYMPHOCYTES # (AUTO) 0.5 (1.0-3.2); LYMPHOCYTES % 2.4 % (18.0-39.1); MEAN CORPUSCULAR HEMOGLOBIN 30.2 pg (28-32); MEAN CORPUSCULAR HGB CONC 31.5 g/dL (31-35); MEAN CORPUSCULAR VOLUME 95.8 fL (81-99); MONOCYTES # (AUTO) 0.5 (0.2-0.8); MONOCYTES % 2.6 % (4.4-11.3); NEUTROPHILS # (AUTO) 19.5 (2.1-6.9); NEUTROPHILS % 93.7 % (38.7-80.0); PLATELET COUNT 465 x10e3/uL (140-360); RED BLOOD COUNT 4.77 x10e6/uL (4.3-5.7); RED CELL DISTRIBUTION WIDTH 13.6 % (11.7-14.4)
[2021-09-01 05:36] LABS: ALBUMIN 1.7 g/dL (3.5-5.0); ALBUMIN/GLOBULIN RATIO 0.3 (0.8-2.0); CREATININE, SERUM 1.1 mg/dL (0.72-1.25)
[2021-09-01] MEDS ORDERED: SODIUM CHLORIDE 0.9% 50ML 50 ML ONE (08:27)
[2021-09-01] MEDS: DEXAMETHASONE SOD PHOS 10 MG/1 ML VIAL IV SCH (08:33)
[2021-09-01] MEDS: FAMOTIDINE 20 MG/2 ML VIAL IV SCH ×2 (08:34→16:48)
[2021-09-01] MEDS: THIAMINE HCL INJ 100 MG/ML 2ML VIAL IV SCH (08:34)
[2021-09-01] MEDS: ENOXAPARIN SOD INJ 60 MG/0.6 ML SYR SC SCH ×2 (08:34→20:30)
[2021-09-01] MEDS ORDERED: METOPROLOL TARTRATE 50 MG TAB NG SCH (09:00)
[2021-09-01] MEDS: MIDAZOLAM HCL 5MG/ML 10ML VIAL 100 ML IV PRN ×2 (09:45→20:31)
[2021-09-01] MEDS: FOLIC ACID 1 MG TAB NG SCH (10:40)
[2021-09-01] MEDS: DOXYCYCLINE HYCLATE 100 MG in SODIUM CHLORIDE 0.9% 100 ML IV SCH ×2 (11:45→23:36)
[2021-09-01] MEDS ORDERED: SODIUM CHLORIDE 0.9% 500ML 500 ML IV ONE (12:30)
[2021-09-01 12:56] LABS: ABG HCO3 23 mmol/L (22-26); ABG PCO2 55 mmHg (35-45); ABG PH 7.24 (7.35-7.45); ABG PO2 93 mmHg (80-105)
[2021-09-01 12:57] LABS: ABG TCO2 25
[2021-09-01] MEDS ORDERED: PIPERACILLIN/TAZOBACTAM 3.375 GM VIAL ONE (20:19)
[2021-09-01] MEDS: ROCURONIUM 1250MG/NS 250 250 ML IV PRN (20:30)
[2021-09-01] MEDS: METOPROLOL TARTRATE 50 MG TAB PO SCH (20:30)
[2021-09-02] VITALS (24 sets, daily range): BP systolic 87–144; BP diastolic 49–81
[2021-09-02] MEDS: PIPERACILLIN/TAZOBACTAM 3.375 GM in SODIUM CHLORIDE 0.9% 50ML 50 ML IV SCH ×3 (04:31→19:55)
[2021-09-02] MEDS: MIDAZOLAM HCL 5MG/ML 10ML VIAL 100 ML IV PRN ×2 (04:32→19:56)
[2021-09-02 05:00] LABS: BASOPHILS % 0.1 % (0.0-1.0); HEMATOCRIT 44.3 % (38.2-49.6); HEMOGLOBIN 13.4 g/dL (14.0-18.0); LYMPHOCYTES # (AUTO) 0.5 (1.0-3.2); LYMPHOCYTES % 3.7 % (18.0-39.1); MEAN CORPUSCULAR HEMOGLOBIN 30.2 pg (28-32); MEAN CORPUSCULAR HGB CONC 30.2 g/dL (31-35); MONOCYTES # (AUTO) 0.6 (0.2-0.8); NEUTROPHILS # (AUTO) 13.4 (2.1-6.9); NEUTROPHILS % 91.4 % (38.7-80.0); PLATELET COUNT 410 x10e3/uL (140-360); RED BLOOD COUNT 4.43 x10e6/uL (4.3-5.7); RED CELL DISTRIBUTION WIDTH 13.9 % (11.7-14.4)
[2021-09-02 05:37] LABS: ALBUMIN 1.6 g/dL (3.5-5.0); ALBUMIN/GLOBULIN RATIO 0.4 (0.8-2.0); CALCIUM 8.2 mg/dL (8.4-10.2); CREATININE, SERUM 1.17 mg/dL (0.72-1.25)
[2021-09-02] MEDS: METOPROLOL TARTRATE 50 MG TAB PO SCH ×2 (08:34→20:34)
[2021-09-02] MEDS: FOLIC ACID 1 MG TAB NG SCH (08:34)
[2021-09-02] MEDS: ENOXAPARIN SOD INJ 60 MG/0.6 ML SYR SC SCH (08:34)
[2021-09-02] MEDS: SENNA-S TABLET PO SCH (08:34)
[2021-09-02] MEDS: FAMOTIDINE 20 MG/2 ML VIAL IV SCH ×2 (08:34→16:15)
[2021-09-02] MEDS: THIAMINE HCL INJ 100 MG/ML 2ML VIAL IV SCH (08:34)
[2021-09-02] MEDS: DEXAMETHASONE SOD PHOS 10 MG/1 ML VIAL IV SCH (08:34)
[2021-09-02 09:55] LABS: ABG HCO3 25 mmol/L (22-26); ABG PCO2 56 mmHg (35-45); ABG PH 7.25 (7.35-7.45); ABG PO2 98 mmHg (80-105); ABG TCO2 26
[2021-09-02] MEDS ORDERED: NOREPINEPHRINE 8 MG/D5W 250 ML 250 ML IV SCH (11:15)
[2021-09-02] MEDS ORDERED: FUROSEMIDE INJ 10 MG/ML 2 ML VIAL IV NR (11:15)
[2021-09-02] MEDS: FENTANYL 2000MCG/NS 250 250 ML IV SCH ×2 (11:31→19:56)
[2021-09-02] MEDS: DOXYCYCLINE HYCLATE 100 MG in SODIUM CHLORIDE 0.9% 100 ML IV SCH ×2 (12:11→23:23)
[2021-09-03] VITALS (25 sets, daily range): BP systolic 92–131; BP diastolic 49–69
[2021-09-03] MEDS: PIPERACILLIN/TAZOBACTAM 3.375 GM in SODIUM CHLORIDE 0.9% 50ML 50 ML IV SCH ×3 (04:04→20:00)
[2021-09-03 05:06] LABS: BASOPHILS % 0.1 % (0.0-1.0); EOSINOPHILS % 0.1 % (0.0-6.0); HEMATOCRIT 45.9 % (38.2-49.6); HEMOGLOBIN 13.9 g/dL (14.0-18.0); LYMPHOCYTES # (AUTO) 0.6 (1.0-3.2); LYMPHOCYTES % 5.1 % (18.0-39.1); MEAN CORPUSCULAR HEMOGLOBIN 30.3 pg (28-32); MEAN CORPUSCULAR HGB CONC 30.3 g/dL (31-35); MONOCYTES # (AUTO) 0.7 (0.2-0.8); MONOCYTES % 5.9 % (4.4-11.3); NEUTROPHILS # (AUTO) 10.4 (2.1-6.9); PLATELET COUNT 396 x10e3/uL (140-360); RED BLOOD COUNT 4.59 x10e6/uL (4.3-5.7); RED CELL DISTRIBUTION WIDTH 14.1 % (11.7-14.4)
[2021-09-03 06:02] LABS: ALBUMIN 1.6 g/dL (3.5-5.0); ALBUMIN/GLOBULIN RATIO 0.4 (0.8-2.0); CALCIUM 8.4 mg/dL (8.4-10.2); POTASSIUM 4.6 mmol/L (3.5-5.1)
[2021-09-03 06:30] LABS: ANION GAP 10.6 mmol/L (8-16); CREATININE, SERUM 0.89 mg/dL (0.72-1.25)
[2021-09-03] MEDS: FENTANYL 2000MCG/NS 250 250 ML IV SCH ×2 (07:59→18:01)
[2021-09-03] MEDS: METOPROLOL TARTRATE 50 MG TAB PO SCH ×2 (08:38→20:01)
[2021-09-03] MEDS: FAMOTIDINE 20 MG/2 ML VIAL IV SCH ×2 (08:38→16:45)
[2021-09-03] MEDS: FOLIC ACID 1 MG TAB NG SCH (08:38)
[2021-09-03] MEDS: SENNA-S TABLET PO SCH (08:38)
[2021-09-03] MEDS: DEXAMETHASONE SOD PHOS 10 MG/1 ML VIAL IV SCH (08:38)
[2021-09-03] MEDS: THIAMINE HCL INJ 100 MG/ML 2ML VIAL IV SCH (08:38)
[2021-09-03] MEDS: ENOXAPARIN SOD INJ 40 MG/0.4 ML SYR SC SCH (08:39)
[2021-09-03 10:23] LABS: ABG PCO2 56 mmHg (35-45); ABG PH 7.29 (7.35-7.45)
[2021-09-03 10:24] LABS: ABG HCO3 27 mmol/L (22-26); ABG PO2 60 mmHg (80-105); ABG TCO2 29
[2021-09-03] MEDS ORDERED: BISACODYL 10 MG SUPP PR ONE (10:30)
[2021-09-03] MEDS ORDERED: MAGNESIUM HYDROXIDE 30 ML UDC PO ONE (10:30)
[2021-09-03] MEDS: ROCURONIUM 1250MG/NS 250 250 ML IV PRN (11:19)
[2021-09-03] MEDS: DOXYCYCLINE HYCLATE 100 MG in SODIUM CHLORIDE 0.9% 100 ML IV SCH ×2 (11:19→22:52)
[2021-09-03] MEDS: MIDAZOLAM HCL 5MG/ML 10ML VIAL 100 ML IV PRN ×2 (11:20→20:00)
[2021-09-04] VITALS (26 sets, daily range): BP systolic 90–135; BP diastolic 53–66
[2021-09-04] MEDS: FENTANYL 2000MCG/NS 250 250 ML IV SCH ×3 (03:00→19:50)
[2021-09-04] MEDS: PIPERACILLIN/TAZOBACTAM 3.375 GM in SODIUM CHLORIDE 0.9% 50ML 50 ML IV SCH ×3 (03:32→20:23)
[2021-09-04 05:10] LABS: BASOPHILS % 0.1 % (0.0-1.0); HEMATOCRIT 45.6 % (38.2-49.6); HEMOGLOBIN 13.9 g/dL (14.0-18.0); LYMPHOCYTES # (AUTO) 0.6 (1.0-3.2); LYMPHOCYTES % 5.1 % (18.0-39.1); MEAN CORPUSCULAR HGB CONC 30.5 g/dL (31-35); MEAN CORPUSCULAR VOLUME 98.5 fL (81-99); MONOCYTES # (AUTO) 0.9 (0.2-0.8); MONOCYTES % 7.7 % (4.4-11.3); NEUTROPHILS # (AUTO) 9.7 (2.1-6.9); NEUTROPHILS % 85.3 % (38.7-80.0); PLATELET COUNT 376 x10e3/uL (140-360); RED BLOOD COUNT 4.63 x10e6/uL (4.3-5.7); RED CELL DISTRIBUTION WIDTH 14.2 % (11.7-14.4)
[2021-09-04 05:46] LABS: ALBUMIN 1.6 g/dL (3.5-5.0); ALBUMIN/GLOBULIN RATIO 0.4 (0.8-2.0); ANION GAP 10.2 mmol/L (8-16); CALCIUM 8.1 mg/dL (8.4-10.2); CREATININE, SERUM 1.06 mg/dL (0.72-1.25); POTASSIUM 5.2 mmol/L (3.5-5.1)
[2021-09-04] MEDS: MIDAZOLAM HCL 5MG/ML 10ML VIAL 100 ML IV PRN ×3 (08:31→19:50)
[2021-09-04 08:43] LABS: ABG HCO3 28 mmol/L (22-26); ABG PCO2 59 mmHg (35-45); ABG PH 7.29 (7.35-7.45); ABG PO2 107 mmHg (80-105); ABG TCO2 30
[2021-09-04] MEDS: FOLIC ACID 1 MG TAB NG SCH (09:00)
[2021-09-04] MEDS: THIAMINE HCL INJ 100 MG/ML 2ML VIAL IV SCH (09:00)
[2021-09-04] MEDS: DEXAMETHASONE SOD PHOS 10 MG/1 ML VIAL IV SCH (09:00)
[2021-09-04] MEDS: FAMOTIDINE 20 MG/2 ML VIAL IV SCH ×2 (09:00→16:44)
[2021-09-04] MEDS: SENNA-S TABLET PO SCH (09:01)
[2021-09-04] MEDS: METOPROLOL TARTRATE 50 MG TAB PO SCH ×2 (09:01→20:23)
[2021-09-04] MEDS: ENOXAPARIN SOD INJ 40 MG/0.4 ML SYR SC SCH (09:01)
[2021-09-04] MEDS ORDERED: SODIUM CHLORIDE 0.9% 50ML 50 ML ONE (10:52)
[2021-09-04] MEDS ORDERED: MINERAL OIL 132 ML BTL PR ONE (11:00)
[2021-09-04] MEDS: DOXYCYCLINE HYCLATE 100 MG in SODIUM CHLORIDE 0.9% 100 ML IV SCH ×2 (11:18→23:04)
[2021-09-04 14:13] LABS: ABG PCO2 53 mmHg (35-45); ABG PH 7.32 (7.35-7.45)
[2021-09-04 14:14] LABS: ABG HCO3 27 mmol/L (22-26); ABG PO2 71 mmHg (80-105); ABG TCO2 29
[2021-09-04] MEDS ORDERED: DEXTROSE 50% SYRINGE 50 ML IV STA (14:41)
[2021-09-04] MEDS ORDERED: INSULIN REGULAR, HUMAN 100 UNIT/1 ML IV ONE (14:45)
[2021-09-04] MEDS: ROCURONIUM 1250MG/NS 250 250 ML IV PRN (20:23)
[2021-09-05] VITALS (24 sets, daily range): BP systolic 94–136; BP diastolic 45–65
[2021-09-05] MEDS: PIPERACILLIN/TAZOBACTAM 3.375 GM in SODIUM CHLORIDE 0.9% 50ML 50 ML IV SCH ×3 (04:06→20:02)
[2021-09-05 07:51] LABS: BASOPHILS % 0.2 % (0.0-1.0); EOSINOPHILS # (AUTO) 0.1 (0.0-0.4); EOSINOPHILS % 0.5 % (0.0-6.0); HEMATOCRIT 42.6 % (38.2-49.6); HEMOGLOBIN 13.3 g/dL (14.0-18.0); LYMPHOCYTES # (AUTO) 0.9 (1.0-3.2); LYMPHOCYTES % 7.5 % (18.0-39.1); MEAN CORPUSCULAR HEMOGLOBIN 30.4 pg (28-32); MEAN CORPUSCULAR HGB CONC 31.2 g/dL (31-35); MEAN CORPUSCULAR VOLUME 97.3 fL (81-99); MONOCYTES # (AUTO) 0.7 (0.2-0.8); MONOCYTES % 5.4 % (4.4-11.3); NEUTROPHILS # (AUTO) 10.1 (2.1-6.9); NEUTROPHILS % 83.7 % (38.7-80.0); PLATELET COUNT 353 x10e3/uL (140-360); RED BLOOD COUNT 4.38 x10e6/uL (4.3-5.7); RED CELL DISTRIBUTION WIDTH 13.8 % (11.7-14.4)
[2021-09-05 08:11] LABS: ALBUMIN 1.7 g/dL (3.5-5.0); ALBUMIN/GLOBULIN RATIO 0.4 (0.8-2.0); ANION GAP 10.7 mmol/L (8-16); CALCIUM 8.2 mg/dL (8.4-10.2); CREATININE, SERUM 0.81 mg/dL (0.72-1.25); POTASSIUM 4.7 mmol/L (3.5-5.1)
[2021-09-05] MEDS: FOLIC ACID 1 MG TAB NG SCH (08:24)
[2021-09-05] MEDS: FAMOTIDINE 20 MG/2 ML VIAL IV SCH ×2 (08:24→17:01)
[2021-09-05] MEDS: DEXAMETHASONE SOD PHOS 10 MG/1 ML VIAL IV SCH (08:24)
[2021-09-05] MEDS: THIAMINE HCL INJ 100 MG/ML 2ML VIAL IV SCH (08:24)
[2021-09-05] MEDS: ENOXAPARIN SOD INJ 40 MG/0.4 ML SYR SC SCH (08:25)
[2021-09-05] MEDS: METOPROLOL TARTRATE 50 MG TAB PO SCH ×2 (08:25→21:00)
[2021-09-05] MEDS: SENNA-S TABLET PO SCH (08:25)
[2021-09-05] MEDS: FENTANYL 2000MCG/NS 250 250 ML IV SCH ×3 (08:28→18:42)
[2021-09-05 09:57] LABS: ABG HCO3 28 mmol/L (22-26); ABG PCO2 52 mmHg (35-45); ABG PH 7.34 (7.35-7.45); ABG PO2 78 mmHg (80-105); ABG TCO2 29
[2021-09-05] MEDS ORDERED: ALBUMIN 25% 25GM 100ML 0.25 GM/ML BTL IV SCH (10:15)
[2021-09-05] MEDS: FUROSEMIDE INJ 10 MG/ML 4 ML VIAL IV SCH ×2 (10:44→20:02)
[2021-09-05] MEDS: DOXYCYCLINE HYCLATE 100 MG in SODIUM CHLORIDE 0.9% 100 ML IV SCH (10:44)
[2021-09-05] MEDS: ALBUMIN 25% 25GM 100ML 100 ML IV SCH ×2 (10:44→20:02)
[2021-09-05] MEDS: MIDAZOLAM HCL 5MG/ML 10ML VIAL 100 ML IV PRN ×2 (13:19→20:27)
[2021-09-06] VITALS (24 sets, daily range): BP systolic 112–210; BP diastolic 43–80
[2021-09-06] MEDS: DOXYCYCLINE HYCLATE 100 MG in SODIUM CHLORIDE 0.9% 100 ML IV SCH ×3 (00:11→22:51)
[2021-09-06] MEDS: ALBUMIN 25% 25GM 100ML 100 ML IV SCH (03:05)
[2021-09-06] MEDS: PIPERACILLIN/TAZOBACTAM 3.375 GM in SODIUM CHLORIDE 0.9% 50ML 50 ML IV SCH ×3 (04:09→20:20)
[2021-09-06] MEDS: FENTANYL 2000MCG/NS 250 250 ML IV SCH ×3 (04:40→23:46)
[2021-09-06 05:23] LABS: BASOPHILS % 0.2 % (0.0-1.0); EOSINOPHILS % 0.2 % (0.0-6.0); HEMATOCRIT 34.7 % (38.2-49.6); HEMOGLOBIN 10.6 g/dL (14.0-18.0); LYMPHOCYTES # (AUTO) 0.8 (1.0-3.2); LYMPHOCYTES % 8.5 % (18.0-39.1); MEAN CORPUSCULAR HEMOGLOBIN 30.1 pg (28-32); MEAN CORPUSCULAR HGB CONC 30.5 g/dL (31-35); MEAN CORPUSCULAR VOLUME 98.6 fL (81-99); MONOCYTES # (AUTO) 0.5 (0.2-0.8); MONOCYTES % 4.8 % (4.4-11.3); NEUTROPHILS # (AUTO) 8.1 (2.1-6.9); NEUTROPHILS % 83.4 % (38.7-80.0); PLATELET COUNT 255 x10e3/uL (140-360); RED BLOOD COUNT 3.52 x10e6/uL (4.3-5.7); RED CELL DISTRIBUTION WIDTH 13.7 % (11.7-14.4)
[2021-09-06 05:38] LABS: ALBUMIN 3.1 g/dL (3.5-5.0); ALBUMIN/GLOBULIN RATIO 1.2 (0.8-2.0); ANION GAP 14.2 mmol/L (8-16); CALCIUM 8.2 mg/dL (8.4-10.2); CREATININE, SERUM 0.97 mg/dL (0.72-1.25); POTASSIUM 4.2 mmol/L (3.5-5.1)
[2021-09-06] MEDS: METOPROLOL TARTRATE INJ 1 MG/ML VIAL IV PRN ×2 (06:39→17:08)
[2021-09-06] MEDS: DEXAMETHASONE SOD PHOS 10 MG/1 ML VIAL IV SCH (08:21)
[2021-09-06] MEDS: FAMOTIDINE 20 MG/2 ML VIAL IV SCH ×2 (08:21→16:27)
[2021-09-06] MEDS: THIAMINE HCL INJ 100 MG/ML 2ML VIAL IV SCH (08:21)
[2021-09-06] MEDS: FOLIC ACID 1 MG TAB NG SCH (08:21)
[2021-09-06] MEDS: SENNA-S TABLET PO SCH (08:22)
[2021-09-06] MEDS: METOPROLOL TARTRATE 50 MG TAB PO SCH ×2 (08:22→20:20)
[2021-09-06] MEDS: ENOXAPARIN SOD INJ 40 MG/0.4 ML SYR SC SCH (08:22)
[2021-09-06 09:18] LABS: ABG PCO2 53 mmHg (35-45); ABG PH 7.39 (7.35-7.45)
[2021-09-06 09:19] LABS: ABG HCO3 32 mmol/L (22-26); ABG PO2 69 mmHg (80-105); ABG TCO2 33
[2021-09-06] MEDS: MIDAZOLAM HCL 5MG/ML 10ML VIAL 100 ML IV PRN ×2 (09:30→18:42)
[2021-09-06] MEDS: ROCURONIUM 1250MG/NS 250 250 ML IV PRN (12:47)
[2021-09-06] MEDS: HYDRALAZINE HCL 20 MG/ML VIAL IV PRN (16:55)
[2021-09-07] VITALS (28 sets, daily range): BP systolic 54–221; BP diastolic 39–72
[2021-09-07] MEDS: MIDAZOLAM HCL 5MG/ML 10ML VIAL 100 ML IV PRN ×5 (01:52→23:52)
[2021-09-07] MEDS: PIPERACILLIN/TAZOBACTAM 3.375 GM in SODIUM CHLORIDE 0.9% 50ML 50 ML IV SCH ×3 (03:44→20:00)
[2021-09-07 06:06] LABS: BASOPHILS % 0.3 % (0.0-1.0); EOSINOPHILS % 0.3 % (0.0-6.0); HEMATOCRIT 34.8 % (38.2-49.6); HEMOGLOBIN 10.8 g/dL (14.0-18.0); LYMPHOCYTES # (AUTO) 0.7 (1.0-3.2); LYMPHOCYTES % 6.2 % (18.0-39.1); MEAN CORPUSCULAR VOLUME 96.7 fL (81-99); MONOCYTES # (AUTO) 0.5 (0.2-0.8); MONOCYTES % 4.8 % (4.4-11.3); NEUTROPHILS # (AUTO) 9.3 (2.1-6.9); NEUTROPHILS % 83.3 % (38.7-80.0); PLATELET COUNT 307 x10e3/uL (140-360); RED CELL DISTRIBUTION WIDTH 13.7 % (11.7-14.4)
[2021-09-07 06:21] LABS: ALBUMIN 2.4 g/dL (3.5-5.0); ALBUMIN/GLOBULIN RATIO 0.8 (0.8-2.0); ANION GAP 14.1 mmol/L (8-16); CALCIUM 8.5 mg/dL (8.4-10.2); CREATININE, SERUM 0.74 mg/dL (0.72-1.25); POTASSIUM 4.1 mmol/L (3.5-5.1)
[2021-09-07] MEDS: HYDRALAZINE HCL 20 MG/ML VIAL IV PRN (06:35)
[2021-09-07] MEDS: METOPROLOL TARTRATE INJ 1 MG/ML VIAL IV PRN (07:01)
[2021-09-07] MEDS: METOPROLOL TARTRATE 50 MG TAB PO SCH ×2 (07:05→20:16)
[2021-09-07] MEDS: SENNA-S TABLET PO SCH (08:39)
[2021-09-07] MEDS: ENOXAPARIN SOD INJ 40 MG/0.4 ML SYR SC SCH (08:39)
[2021-09-07] MEDS: FAMOTIDINE 20 MG/2 ML VIAL IV SCH ×2 (08:39→17:09)
[2021-09-07] MEDS: FOLIC ACID 1 MG TAB NG SCH (08:39)
[2021-09-07] MEDS: THIAMINE HCL INJ 100 MG/ML 2ML VIAL IV SCH (08:39)
[2021-09-07 09:08] LABS: ABG HCO3 32 mmol/L (22-26); ABG PCO2 55 mmHg (35-45); ABG PH 7.37 (7.35-7.45); ABG PO2 57 mmHg (80-105); ABG TCO2 34
[2021-09-07] MEDS ORDERED: LACTULOSE SYRUP 20 GM/30 ML UDC PO ONE (10:45)
[2021-09-07] MEDS ORDERED: PROPOFOL IV EMULSION 10MG/ML 100 ML IV PRN (10:45)
[2021-09-07] MEDS: PROPOFOL IV EMULSION 10MG/ML 100 ML IV PRN ×2 (10:58→20:23)
[2021-09-07] MEDS: DOXYCYCLINE HYCLATE 100 MG in SODIUM CHLORIDE 0.9% 100 ML IV SCH ×2 (11:30→22:57)
[2021-09-07] MEDS: FENTANYL 2000MCG/NS 250 250 ML IV SCH ×2 (13:32→20:22)
[2021-09-07] MEDS ORDERED: SODIUM CHLORIDE 0.9% 1000ML 1,000 ML ONE (20:10)
[2021-09-08] VITALS (26 sets, daily range): BP systolic 101–153; BP diastolic 42–57
[2021-09-08] MEDS ORDERED: DEXMEDETOMIDINE 400MCG/NS100ML 100 ML IV PRN (01:30)
[2021-09-08] MEDS: FENTANYL 2000MCG/NS 250 250 ML IV SCH ×3 (02:48→16:18)
[2021-09-08] MEDS: METOPROLOL TARTRATE INJ 1 MG/ML VIAL IV PRN (02:57)
[2021-09-08] MEDS: METOPROLOL TARTRATE 50 MG TAB PO SCH ×2 (03:08→21:18)
[2021-09-08] MEDS: PIPERACILLIN/TAZOBACTAM 3.375 GM in SODIUM CHLORIDE 0.9% 50ML 50 ML IV SCH ×3 (04:09→20:51)
[2021-09-08] MEDS: PROPOFOL IV EMULSION 10MG/ML 100 ML IV PRN ×3 (04:46→21:31)
[2021-09-08] MEDS: MIDAZOLAM HCL 5MG/ML 10ML VIAL 100 ML IV PRN ×4 (04:47→21:20)
[2021-09-08 05:36] LABS: BASOPHILS % 0.2 % (0.0-1.0); EOSINOPHILS # (AUTO) 0.2 (0.0-0.4); EOSINOPHILS % 1.1 % (0.0-6.0); HEMOGLOBIN 11.1 g/dL (14.0-18.0); LYMPHOCYTES # (AUTO) 0.6 (1.0-3.2); LYMPHOCYTES % 3.9 % (18.0-39.1); MEAN CORPUSCULAR HEMOGLOBIN 30.2 pg (28-32); MEAN CORPUSCULAR VOLUME 100.5 fL (81-99); MONOCYTES # (AUTO) 0.5 (0.2-0.8); MONOCYTES % 3.1 % (4.4-11.3); NEUTROPHILS % 88.7 % (38.7-80.0); PLATELET COUNT 334 x10e3/uL (140-360); RED BLOOD COUNT 3.68 x10e6/uL (4.3-5.7); RED CELL DISTRIBUTION WIDTH 14.4 % (11.7-14.4)
[2021-09-08 06:01] LABS: ALBUMIN/GLOBULIN RATIO 0.6 (0.8-2.0); ANION GAP 11.3 mmol/L (8-16); CALCIUM 8.3 mg/dL (8.4-10.2); CREATININE, SERUM 0.77 mg/dL (0.72-1.25); POTASSIUM 4.3 mmol/L (3.5-5.1)
[2021-09-08] MEDS: ENOXAPARIN SOD INJ 40 MG/0.4 ML SYR SC SCH (08:52)
[2021-09-08] MEDS: FOLIC ACID 1 MG TAB NG SCH (08:52)
[2021-09-08] MEDS: THIAMINE HCL INJ 100 MG/ML 2ML VIAL IV SCH (08:52)
[2021-09-08] MEDS: SENNA-S TABLET PO SCH (08:52)
[2021-09-08] MEDS: FAMOTIDINE 20 MG/2 ML VIAL IV SCH ×2 (08:52→17:36)
[2021-09-08] MEDS ORDERED: VECURONIUM BROMIDE FOR INJ 20 MG VIAL IV STA (09:41)
[2021-09-08] MEDS ORDERED: ALBUMIN 25% 25GM 100ML 0.25 GM/ML BTL IV SCH (10:00)
[2021-09-08] MEDS: FUROSEMIDE INJ 10 MG/ML 4 ML VIAL IV SCH ×2 (10:12→20:52)
[2021-09-08] MEDS: ALBUMIN 25% 25GM 100ML 100 ML IV SCH ×2 (10:12→17:37)
[2021-09-08 11:25] LABS: ABG HCO3 30 mmol/L (22-26); ABG PCO2 61 mmHg (35-45); ABG PO2 51 mmHg (80-105); ABG TCO2 32
[2021-09-08] MEDS: DOXYCYCLINE HYCLATE 100 MG in SODIUM CHLORIDE 0.9% 100 ML IV SCH ×2 (11:31→23:35)
[2021-09-08 16:06] LABS: ABG PH 7.23 (7.35-7.45)
[2021-09-08 16:07] LABS: ABG HCO3 33 mmol/L (22-26); ABG PCO2 78 mmHg (35-45); ABG PO2 63 mmHg (80-105); ABG TCO2 35
[2021-09-08] MEDS: METOCLOPRAMIDE HCL 10 MG/2ML VIAL IV SCH ×2 (17:37→23:35)
[2021-09-09] VITALS (25 sets, daily range): BP systolic 100–154; BP diastolic 47–65
[2021-09-09] MEDS: FENTANYL 2000MCG/NS 250 250 ML IV SCH ×4 (00:35→21:23)
[2021-09-09] MEDS: ALBUMIN 25% 25GM 100ML 100 ML IV SCH (01:49)
[2021-09-09] MEDS: MIDAZOLAM HCL 5MG/ML 10ML VIAL 100 ML IV PRN ×5 (02:15→22:56)
[2021-09-09] MEDS: PROPOFOL IV EMULSION 10MG/ML 100 ML IV PRN ×3 (04:33→22:55)
[2021-09-09] MEDS: PIPERACILLIN/TAZOBACTAM 3.375 GM in SODIUM CHLORIDE 0.9% 50ML 50 ML IV SCH (04:33)
[2021-09-09 05:06] LABS: BASOPHILS % 0.1 % (0.0-1.0); EOSINOPHILS % 0.1 % (0.0-6.0); HEMATOCRIT 34.2 % (38.2-49.6); HEMOGLOBIN 10.4 g/dL (14.0-18.0); LYMPHOCYTES # (AUTO) 0.5 (1.0-3.2); LYMPHOCYTES % 3.1 % (18.0-39.1); MEAN CORPUSCULAR HEMOGLOBIN 29.8 pg (28-32); MEAN CORPUSCULAR HGB CONC 30.4 g/dL (31-35); MONOCYTES # (AUTO) 0.3 (0.2-0.8); MONOCYTES % 2.3 % (4.4-11.3); NEUTROPHILS # (AUTO) 13.3 (2.1-6.9); NEUTROPHILS % 92.9 % (38.7-80.0); PLATELET COUNT 269 x10e3/uL (140-360); RED BLOOD COUNT 3.49 x10e6/uL (4.3-5.7); RED CELL DISTRIBUTION WIDTH 14.3 % (11.7-14.4)
[2021-09-09 05:24] LABS: ALBUMIN/GLOBULIN RATIO 1.1 (0.8-2.0); ANION GAP 14.1 mmol/L (8-16); CALCIUM 8.8 mg/dL (8.4-10.2); CREATININE, SERUM 0.74 mg/dL (0.72-1.25); POTASSIUM 4.1 mmol/L (3.5-5.1)
[2021-09-09] MEDS: METOCLOPRAMIDE HCL 10 MG/2ML VIAL IV SCH ×4 (05:27→23:37)
[2021-09-09 07:21] LABS: LYMPHOCYTES % (MANUAL) 2 % (19-48); MONOCYTES % (MANUAL) 1 % (3.4-9.0); MYELOCYTES % (MANUAL) 2 % (0-0); NEUTROPHILS % (MANUAL) 94 % (40-74); PLATELET ESTIMATE ADEQUATE; PLATELET MORPHOLOGY COMMENT NORMAL; RBC MORPHOLOGY COMMENT NORMAL
[2021-09-09 09:07] LABS: ABG HCO3 34 mmol/L (22-26); ABG PCO2 63 mmHg (35-45); ABG PH 7.34 (7.35-7.45); ABG PO2 81 mmHg (80-105); ABG TCO2 36
[2021-09-09] MEDS: THIAMINE HCL INJ 100 MG/ML 2ML VIAL IV SCH (10:03)
[2021-09-09] MEDS: ENOXAPARIN SOD INJ 40 MG/0.4 ML SYR SC SCH (10:03)
[2021-09-09] MEDS: FAMOTIDINE 20 MG/2 ML VIAL IV SCH ×2 (10:03→16:58)
[2021-09-09] MEDS: FOLIC ACID 1 MG TAB NG SCH (10:03)
[2021-09-09] MEDS: SENNA-S TABLET PO SCH (10:03)
[2021-09-09] MEDS: METOPROLOL TARTRATE 50 MG TAB PO SCH ×2 (10:03→20:44)
[2021-09-09] MEDS: ROCURONIUM 1250MG/NS 250 250 ML IV PRN (16:59)
[2021-09-10] VITALS (23 sets, daily range): BP systolic 92–155; BP diastolic 40–65
[2021-09-10] MEDS: FENTANYL 2000MCG/NS 250 250 ML IV SCH ×4 (03:58→17:10)
[2021-09-10] MEDS: MIDAZOLAM HCL 5MG/ML 10ML VIAL 100 ML IV PRN ×4 (03:59→17:11)
[2021-09-10 05:15] LABS: BASOPHILS % 0.2 % (0.0-1.0); EOSINOPHILS # (AUTO) 0.2 (0.0-0.4); EOSINOPHILS % 1.5 % (0.0-6.0); HEMATOCRIT 32.1 % (38.2-49.6); LYMPHOCYTES # (AUTO) 0.6 (1.0-3.2); LYMPHOCYTES % 5.2 % (18.0-39.1); MEAN CORPUSCULAR HEMOGLOBIN 31.2 pg (28-32); MEAN CORPUSCULAR HGB CONC 31.2 g/dL (31-35); MONOCYTES # (AUTO) 0.3 (0.2-0.8); NEUTROPHILS # (AUTO) 9.9 (2.1-6.9); NEUTROPHILS % 87.5 % (38.7-80.0); PLATELET COUNT 266 x10e3/uL (140-360); RED BLOOD COUNT 3.21 x10e6/uL (4.3-5.7); RED CELL DISTRIBUTION WIDTH 14.6 % (11.7-14.4)
[2021-09-10] MEDS: METOCLOPRAMIDE HCL 10 MG/2ML VIAL IV SCH ×3 (05:17→17:09)
[2021-09-10 05:35] LABS: ALBUMIN 2.2 g/dL (3.5-5.0); ALBUMIN/GLOBULIN RATIO 0.7 (0.8-2.0); ANION GAP 11.1 mmol/L (8-16); CALCIUM 8.7 mg/dL (8.4-10.2); CREATININE, SERUM 0.64 mg/dL (0.72-1.25); POTASSIUM 4.1 mmol/L (3.5-5.1)
[2021-09-10] MEDS: THIAMINE HCL INJ 100 MG/ML 2ML VIAL IV SCH (08:14)
[2021-09-10] MEDS: FOLIC ACID 1 MG TAB NG SCH (08:14)
[2021-09-10] MEDS: FAMOTIDINE 20 MG/2 ML VIAL IV SCH ×2 (08:14→17:09)
[2021-09-10] MEDS: ENOXAPARIN SOD INJ 40 MG/0.4 ML SYR SC SCH (08:15)
[2021-09-10] MEDS: METOPROLOL TARTRATE 50 MG TAB PO SCH ×2 (08:15→21:38)
[2021-09-10] MEDS: SENNA-S TABLET PO SCH (08:15)
[2021-09-10 09:09] LABS: ABG HCO3 33 mmol/L (22-26); ABG PCO2 60 mmHg (35-45); ABG PH 7.35 (7.35-7.45); ABG PO2 65 mmHg (80-105)
[2021-09-10 09:10] LABS: ABG TCO2 35
[2021-09-10] MEDS: BALSAM PERU/CASTOR OIL 60 GM OINT...G. TP SCH (09:13)
[2021-09-10] MEDS: ROCURONIUM 1250MG/NS 250 250 ML IV PRN (10:43)
[2021-09-10] MEDS ORDERED: ALTEPLASE RECOMBINANT 2 MG/2 ML VIAL IV PRN (11:15)
[2021-09-10] MEDS ORDERED: ALBUMIN 25% 25GM 100ML 0.25 GM/ML BTL IV ONE (21:30)
[2021-09-11] VITALS (36 sets, daily range): BP systolic 90–134; BP diastolic 42–61
[2021-09-11] MEDS: METOCLOPRAMIDE HCL 10 MG/2ML VIAL IV SCH ×4 (00:31→16:54)
[2021-09-11] MEDS: MIDAZOLAM HCL 5MG/ML 10ML VIAL 100 ML IV PRN ×5 (00:32→20:10)
[2021-09-11] MEDS: FENTANYL 2000MCG/NS 250 250 ML IV SCH ×4 (00:33→22:14)
[2021-09-11 04:44] LABS: BASOPHILS % 0.2 % (0.0-1.0); EOSINOPHILS # (AUTO) 0.1 (0.0-0.4); EOSINOPHILS % 0.5 % (0.0-6.0); HEMATOCRIT 31.6 % (38.2-49.6); HEMOGLOBIN 9.4 g/dL (14.0-18.0); LYMPHOCYTES # (AUTO) 0.4 (1.0-3.2); LYMPHOCYTES % 3.2 % (18.0-39.1); MEAN CORPUSCULAR HEMOGLOBIN 30.3 pg (28-32); MEAN CORPUSCULAR HGB CONC 29.7 g/dL (31-35); MEAN CORPUSCULAR VOLUME 101.9 fL (81-99); MONOCYTES # (AUTO) 0.4 (0.2-0.8); MONOCYTES % 3.5 % (4.4-11.3); NEUTROPHILS % 90.1 % (38.7-80.0); PLATELET COUNT 246 x10e3/uL (140-360); RED CELL DISTRIBUTION WIDTH 14.7 % (11.7-14.4)
[2021-09-11 05:08] LABS: ALBUMIN 2.2 g/dL (3.5-5.0); ALBUMIN/GLOBULIN RATIO 0.7 (0.8-2.0); ANION GAP 11.4 mmol/L (8-16); CALCIUM 8.7 mg/dL (8.4-10.2); CREATININE, SERUM 0.72 mg/dL (0.72-1.25); POTASSIUM 4.4 mmol/L (3.5-5.1)
[2021-09-11] MEDS: PROPOFOL IV EMULSION 10MG/ML 100 ML IV PRN ×3 (05:13→20:06)
[2021-09-11] MEDS ORDERED: NOREPINEPHRINE 8 MG/D5W 250 ML 250 ML ONE (05:49)
[2021-09-11] MEDS: NOREPINEPHRINE 8 MG/D5W 250 ML 250 ML IV PRN ×2 (06:06→10:20)
[2021-09-11] MEDS: METOPROLOL TARTRATE INJ 1 MG/ML VIAL IV PRN (06:07)
[2021-09-11] MEDS ORDERED: AMIODARONE 900MG 500 ML IV ONE (06:15)
[2021-09-11] MEDS ORDERED: AMIODARONE HCL 100 ML IV ONE ×2 (06:15→06:17)
[2021-09-11 08:02] LABS: ABG HCO3 30 mmol/L (22-26); ABG PCO2 65 mmHg (35-45); ABG PH 7.27 (7.35-7.45); ABG PO2 75 mmHg (80-105); ABG TCO2 32
[2021-09-11] MEDS ORDERED: DIGOXIN INJ 0.25 MG/ML 2 ML AMP IV ONE (08:15)
[2021-09-11] MEDS: ENOXAPARIN SOD INJ 40 MG/0.4 ML SYR SC SCH (08:16)
[2021-09-11] MEDS: FAMOTIDINE 20 MG/2 ML VIAL IV SCH ×2 (08:16→16:36)
[2021-09-11] MEDS: BALSAM PERU/CASTOR OIL 60 GM OINT...G. TP SCH (08:16)
[2021-09-11] MEDS: FOLIC ACID 1 MG TAB NG SCH (08:16)
[2021-09-11] MEDS: THIAMINE HCL INJ 100 MG/ML 2ML VIAL IV SCH (08:16)
[2021-09-11] MEDS: SENNA-S TABLET PO SCH (08:16)
[2021-09-11] MEDS: METOPROLOL TARTRATE 50 MG TAB PO SCH ×2 (08:16→20:06)
[2021-09-11 10:32] LABS: CREATINE KINASE MB 1.9 ng/mL (0-5.0)
[2021-09-11] MEDS ORDERED: ACETAMINOPHEN 325 MG TAB PO PRN (15:00)
[2021-09-12] VITALS (14 sets, daily range): BP systolic 92–132; BP diastolic 45–64
[2021-09-12] MEDS: METOCLOPRAMIDE HCL 10 MG/2ML VIAL IV SCH ×5 (00:21→23:41)
[2021-09-12] MEDS: PROPOFOL IV EMULSION 10MG/ML 100 ML IV PRN ×3 (01:31→21:15)
[2021-09-12] MEDS: MIDAZOLAM HCL 5MG/ML 10ML VIAL 100 ML IV PRN ×5 (01:38→22:47)
[2021-09-12 06:18] LABS: BASOPHILS % 0.3 % (0.0-1.0); EOSINOPHILS # (AUTO) 0.2 (0.0-0.4); HEMATOCRIT 31.1 % (38.2-49.6); HEMOGLOBIN 9.6 g/dL (14.0-18.0); LYMPHOCYTES # (AUTO) 0.6 (1.0-3.2); LYMPHOCYTES % 5.7 % (18.0-39.1); MEAN CORPUSCULAR HEMOGLOBIN 30.4 pg (28-32); MEAN CORPUSCULAR HGB CONC 30.9 g/dL (31-35); MEAN CORPUSCULAR VOLUME 98.4 fL (81-99); MONOCYTES # (AUTO) 0.5 (0.2-0.8); MONOCYTES % 5.4 % (4.4-11.3); NEUTROPHILS # (AUTO) 8.3 (2.1-6.9); NEUTROPHILS % 84.2 % (38.7-80.0); PLATELET COUNT 221 x10e3/uL (140-360); RED BLOOD COUNT 3.16 x10e6/uL (4.3-5.7); RED CELL DISTRIBUTION WIDTH 14.7 % (11.7-14.4)
[2021-09-12] MEDS: FENTANYL 2000MCG/NS 250 250 ML IV SCH ×3 (06:19→20:52)
[2021-09-12 06:54] LABS: ALBUMIN 1.8 g/dL (3.5-5.0); ALBUMIN/GLOBULIN RATIO 0.5 (0.8-2.0); ANION GAP 11.2 mmol/L (8-16); CALCIUM 8.4 mg/dL (8.4-10.2); CREATININE, SERUM 0.62 mg/dL (0.72-1.25); POTASSIUM 4.2 mmol/L (3.5-5.1)
[2021-09-12] MEDS ORDERED: AMIODARONE 900MG 500 ML IV ONE (08:15)
[2021-09-12 09:22] LABS: ABG HCO3 31 mmol/L (22-26); ABG PCO2 64 mmHg (35-45); ABG PO2 74 mmHg (80-105)
[2021-09-12 09:23] LABS: ABG TCO2 33
[2021-09-12] MEDS: FOLIC ACID 1 MG TAB NG SCH (09:23)
[2021-09-12] MEDS: ENOXAPARIN SOD INJ 40 MG/0.4 ML SYR SC SCH (09:23)
[2021-09-12] MEDS: THIAMINE HCL INJ 100 MG/ML 2ML VIAL IV SCH (09:23)
[2021-09-12] MEDS: METOPROLOL TARTRATE 50 MG TAB PO SCH ×2 (09:23→21:17)
[2021-09-12] MEDS: FAMOTIDINE 20 MG/2 ML VIAL IV SCH ×2 (09:23→17:26)
[2021-09-12] MEDS: BALSAM PERU/CASTOR OIL 60 GM OINT...G. TP SCH (09:23)
[2021-09-12] MEDS: SENNA-S TABLET PO SCH (09:23)
[2021-09-12] MEDS: NOREPINEPHRINE 8 MG/D5W 250 ML 250 ML IV PRN (11:57)
[2021-09-12] MEDS ORDERED: FUROSEMIDE INJ 10 MG/ML 4 ML VIAL IV ONE (17:30)
[2021-09-13] VITALS (15 sets, daily range): BP systolic 95–133; BP diastolic 45–70
[2021-09-13] MEDS: NOREPINEPHRINE 8 MG/D5W 250 ML 250 ML IV PRN ×2 (01:34→21:44)
[2021-09-13] MEDS: BALSAM PERU/CASTOR OIL 60 GM OINT...G. TP SCH (01:35)
[2021-09-13] MEDS: FENTANYL 2000MCG/NS 250 250 ML IV SCH ×3 (04:26→18:32)
[2021-09-13] MEDS: MIDAZOLAM HCL 5MG/ML 10ML VIAL 100 ML IV PRN ×3 (04:32→17:05)
[2021-09-13] MEDS: METOCLOPRAMIDE HCL 10 MG/2ML VIAL IV SCH (07:07)
[2021-09-13 07:16] LABS: BASOPHILS # (AUTO) 0.1 (0.0-0.1); BASOPHILS % 0.4 % (0.0-1.0); EOSINOPHILS % 0.2 % (0.0-6.0); HEMATOCRIT 33.5 % (38.2-49.6); HEMOGLOBIN 9.9 g/dL (14.0-18.0); LYMPHOCYTES # (AUTO) 1.1 (1.0-3.2); LYMPHOCYTES % 5.9 % (18.0-39.1); MEAN CORPUSCULAR HEMOGLOBIN 30.1 pg (28-32); MEAN CORPUSCULAR HGB CONC 29.6 g/dL (31-35); MEAN CORPUSCULAR VOLUME 101.8 fL (81-99); MONOCYTES # (AUTO) 1.1 (0.2-0.8); MONOCYTES % 5.8 % (4.4-11.3); NEUTROPHILS # (AUTO) 15.4 (2.1-6.9); NEUTROPHILS % 81.7 % (38.7-80.0); PLATELET COUNT 302 x10e3/uL (140-360); RED BLOOD COUNT 3.29 x10e6/uL (4.3-5.7); RED CELL DISTRIBUTION WIDTH 14.9 % (11.7-14.4)
[2021-09-13 07:30] LABS: ALBUMIN 1.8 g/dL (3.5-5.0); ALBUMIN/GLOBULIN RATIO 0.5 (0.8-2.0); ANION GAP 15.8 mmol/L (8-16); CALCIUM 8.4 mg/dL (8.4-10.2); CREATININE, SERUM 0.95 mg/dL (0.72-1.25); POTASSIUM 4.8 mmol/L (3.5-5.1)
[2021-09-13] MEDS ORDERED: SODIUM CHLORIDE 0.9% 500ML 500 ML IV ONE (08:45)
[2021-09-13] MEDS: FAMOTIDINE 20 MG/2 ML VIAL IV SCH ×2 (09:14→18:01)
[2021-09-13] MEDS: THIAMINE HCL INJ 100 MG/ML 2ML VIAL IV SCH (09:14)
[2021-09-13] MEDS: FOLIC ACID 1 MG TAB NG SCH (09:14)
[2021-09-13] MEDS: METOPROLOL TARTRATE 50 MG TAB PO SCH ×2 (09:15→21:12)
[2021-09-13] MEDS: ENOXAPARIN SOD INJ 40 MG/0.4 ML SYR SC SCH (09:15)
[2021-09-13] MEDS: SENNA-S TABLET PO SCH (09:15)
[2021-09-13] MEDS ORDERED: Vancomycin IV 1 GM in SODIUM CHLORIDE 0.9% 250ML 250 ML IV ONE (09:30)
[2021-09-13] MEDS: PROPOFOL IV EMULSION 10MG/ML 100 ML IV PRN ×2 (09:46→21:43)
[2021-09-13 11:38] LABS: ABG HCO3 28 mmol/L (22-26); ABG PCO2 62 mmHg (35-45); ABG PH 7.26 (7.35-7.45); ABG PO2 59 mmHg (80-105); ABG TCO2 30
[2021-09-13] MEDS: PIPERACILLIN/TAZOBACTAM 3.375 GM in SODIUM CHLORIDE 0.9% 50ML 50 ML IV SCH ×3 (13:02→23:37)
[2021-09-13] MEDS: FUROSEMIDE INJ 10 MG/ML 4 ML VIAL IV SCH (13:57)
[2021-09-13] MEDS: AMIODARONE HCL 200 MG TAB PO SCH (18:01)
[2021-09-13] MEDS: ROCURONIUM 1250MG/NS 250 250 ML IV PRN (21:44)
[2021-09-14] VITALS (16 sets, daily range): BP systolic 102–132; BP diastolic 43–64
[2021-09-14] MEDS: MIDAZOLAM HCL 5MG/ML 10ML VIAL 100 ML IV PRN ×2 (01:17→14:00)
[2021-09-14] MEDS: FENTANYL 2000MCG/NS 250 250 ML IV SCH ×3 (02:29→16:05)
[2021-09-14 05:53] LABS: BASOPHILS # (AUTO) 0.1 (0.0-0.1); BASOPHILS % 0.4 % (0.0-1.0); EOSINOPHILS # (AUTO) 0.1 (0.0-0.4); EOSINOPHILS % 0.7 % (0.0-6.0); HEMATOCRIT 30.9 % (38.2-49.6); HEMOGLOBIN 9.2 g/dL (14.0-18.0); LYMPHOCYTES # (AUTO) 0.8 (1.0-3.2); LYMPHOCYTES % 4.4 % (18.0-39.1); MEAN CORPUSCULAR HEMOGLOBIN 30.2 pg (28-32); MEAN CORPUSCULAR HGB CONC 29.8 g/dL (31-35); MEAN CORPUSCULAR VOLUME 101.3 fL (81-99); MONOCYTES # (AUTO) 0.9 (0.2-0.8); MONOCYTES % 4.7 % (4.4-11.3); NEUTROPHILS % 83.5 % (38.7-80.0); PLATELET COUNT 269 x10e3/uL (140-360); RED BLOOD COUNT 3.05 x10e6/uL (4.3-5.7); RED CELL DISTRIBUTION WIDTH 15.3 % (11.7-14.4)
[2021-09-14 06:24] LABS: ALBUMIN 1.6 g/dL (3.5-5.0); ALBUMIN/GLOBULIN RATIO 0.4 (0.8-2.0); ANION GAP 13.2 mmol/L (8-16); CALCIUM 8.1 mg/dL (8.4-10.2); CREATININE, SERUM 0.98 mg/dL (0.72-1.25); POTASSIUM 4.2 mmol/L (3.5-5.1)
[2021-09-14] MEDS: PIPERACILLIN/TAZOBACTAM 3.375 GM in SODIUM CHLORIDE 0.9% 50ML 50 ML IV SCH ×4 (06:31→23:45)
[2021-09-14] MEDS: METOPROLOL TARTRATE 50 MG TAB PO SCH ×2 (09:00→20:32)
[2021-09-14 09:46] LABS: ABG HCO3 29 mmol/L (22-26); ABG PCO2 65 mmHg (35-45); ABG PH 7.26 (7.35-7.45); ABG PO2 50 mmHg (80-105); ABG TCO2 31
[2021-09-14] MEDS: THIAMINE HCL INJ 100 MG/ML 2ML VIAL IV SCH (10:13)
[2021-09-14] MEDS: FOLIC ACID 1 MG TAB NG SCH (10:13)
[2021-09-14] MEDS: AMIODARONE HCL 200 MG TAB PO SCH ×2 (10:13→17:37)
[2021-09-14] MEDS: FUROSEMIDE INJ 10 MG/ML 4 ML VIAL IV SCH (10:13)
[2021-09-14] MEDS: FAMOTIDINE 20 MG/2 ML VIAL IV SCH ×2 (10:13→17:37)
[2021-09-14] MEDS: ENOXAPARIN SOD INJ 40 MG/0.4 ML SYR SC SCH (10:15)
[2021-09-14] MEDS: SENNA-S TABLET PO SCH (10:15)
[2021-09-14] MEDS: BALSAM PERU/CASTOR OIL 60 GM OINT...G. TP SCH (10:15)
[2021-09-14] MEDS: PROPOFOL IV EMULSION 10MG/ML 100 ML IV PRN (10:18)
[2021-09-14] MEDS ORDERED: BISACODYL 10 MG SUPP PR ONE (10:30)
[2021-09-15] VITALS (28 sets, daily range): BP systolic 94–127; BP diastolic 44–64
[2021-09-15] MEDS: PROPOFOL IV EMULSION 10MG/ML 100 ML IV PRN (00:27)
[2021-09-15] MEDS: NOREPINEPHRINE 8 MG/D5W 250 ML 250 ML IV PRN ×4 (00:28→20:00)
[2021-09-15] MEDS: ROCURONIUM 1250MG/NS 250 250 ML IV PRN (00:28)
[2021-09-15] MEDS: MIDAZOLAM HCL 5MG/ML 10ML VIAL 100 ML IV PRN ×3 (00:29→17:42)
[2021-09-15] MEDS: FENTANYL 2000MCG/NS 250 250 ML IV SCH ×4 (00:29→19:00)
[2021-09-15] MEDS: PIPERACILLIN/TAZOBACTAM 3.375 GM in SODIUM CHLORIDE 0.9% 50ML 50 ML IV SCH ×3 (05:30→17:15)
[2021-09-15 05:59] LABS: BASOPHILS # (AUTO) 0.1 (0.0-0.1); BASOPHILS % 0.5 % (0.0-1.0); EOSINOPHILS % 0.1 % (0.0-6.0); HEMATOCRIT 30.3 % (38.2-49.6); HEMOGLOBIN 9.3 g/dL (14.0-18.0); LYMPHOCYTES # (AUTO) 0.8 (1.0-3.2); LYMPHOCYTES % 3.3 % (18.0-39.1); MEAN CORPUSCULAR HEMOGLOBIN 30.4 pg (28-32); MEAN CORPUSCULAR HGB CONC 30.7 g/dL (31-35); MONOCYTES # (AUTO) 0.8 (0.2-0.8); MONOCYTES % 3.4 % (4.4-11.3); NEUTROPHILS # (AUTO) 20.5 (2.1-6.9); NEUTROPHILS % 86.2 % (38.7-80.0); PLATELET COUNT 280 x10e3/uL (140-360); RED BLOOD COUNT 3.06 x10e6/uL (4.3-5.7); RED CELL DISTRIBUTION WIDTH 15.2 % (11.7-14.4)
[2021-09-15 06:24] LABS: ALBUMIN 1.6 g/dL (3.5-5.0); ALBUMIN/GLOBULIN RATIO 0.4 (0.8-2.0); ANION GAP 14.1 mmol/L (8-16); CALCIUM 8.2 mg/dL (8.4-10.2); CREATININE, SERUM 0.85 mg/dL (0.72-1.25); POTASSIUM 4.1 mmol/L (3.5-5.1)
[2021-09-15 08:00] LABS: ABG PH 7.23 (7.35-7.45)
[2021-09-15 08:01] LABS: ABG HCO3 30 mmol/L (22-26); ABG PCO2 71 mmHg (35-45); ABG PO2 44 mmHg (80-105)
[2021-09-15 08:03] LABS: ABG TCO2 32
[2021-09-15] MEDS: BALSAM PERU/CASTOR OIL 60 GM OINT...G. TP SCH (09:16)
[2021-09-15] MEDS: FAMOTIDINE 20 MG/2 ML VIAL IV SCH ×2 (09:16→16:51)
[2021-09-15] MEDS: THIAMINE HCL INJ 100 MG/ML 2ML VIAL IV SCH (09:16)
[2021-09-15] MEDS: SENNA-S TABLET PO SCH (09:16)
[2021-09-15] MEDS: ENOXAPARIN SOD INJ 40 MG/0.4 ML SYR SC SCH (09:16)
[2021-09-15] MEDS: AMIODARONE HCL 200 MG TAB PO SCH ×2 (09:16→16:51)
[2021-09-15] MEDS: METOPROLOL TARTRATE 50 MG TAB PO SCH ×2 (09:16→22:27)
[2021-09-15] MEDS: FOLIC ACID 1 MG TAB NG SCH (09:16)
[2021-09-15] MEDS: FUROSEMIDE INJ 10 MG/ML 4 ML VIAL IV SCH ×2 (09:17→16:51)
[2021-09-15 11:31] LABS: BAND NEUTROPHILS % (MANUAL) 8 %; LYMPHOCYTES % (MANUAL) 4 % (19-48); METAMYELOCYTES % (MANUAL) 2 % (0-0); MONOCYTES % (MANUAL) 3 % (3.4-9.0); MYELOCYTES % (MANUAL) 1 % (0-0); NEUTROPHILS % (MANUAL) 82 % (40-74); NUCLEATED RED BLOOD CELLS 11; PLATELET ESTIMATE ADEQUATE; RBC MORPHOLOGY COMMENT NORMAL
[2021-09-15 11:32] LABS: PLATELET MORPHOLOGY COMMENT FEW LARGE
[2021-09-16] VITALS (24 sets, daily range): BP systolic 96–128; BP diastolic 43–65
[2021-09-16] MEDS: PIPERACILLIN/TAZOBACTAM 3.375 GM in SODIUM CHLORIDE 0.9% 50ML 50 ML IV SCH ×5 (00:55→23:55)
[2021-09-16] MEDS: NOREPINEPHRINE 8 MG/D5W 250 ML 250 ML IV PRN ×6 (01:32→23:55)
[2021-09-16] MEDS: FENTANYL 2000MCG/NS 250 250 ML IV SCH ×4 (02:38→23:13)
[2021-09-16] MEDS: ROCURONIUM 1250MG/NS 250 250 ML IV PRN (04:20)
[2021-09-16] MEDS: PROPOFOL IV EMULSION 10MG/ML 100 ML IV PRN ×2 (05:11→22:05)
[2021-09-16] MEDS: MIDAZOLAM HCL 5MG/ML 10ML VIAL 100 ML IV PRN ×2 (05:15→14:56)
[2021-09-16 06:11] LABS: BASOPHILS # (AUTO) 0.1 (0.0-0.1); BASOPHILS % 0.5 % (0.0-1.0); EOSINOPHILS # (AUTO) 0.1 (0.0-0.4); EOSINOPHILS % 0.2 % (0.0-6.0); HEMATOCRIT 28.5 % (38.2-49.6); HEMOGLOBIN 8.5 g/dL (14.0-18.0); LYMPHOCYTES # (AUTO) 1.7 (1.0-3.2); LYMPHOCYTES % 6.6 % (18.0-39.1); MEAN CORPUSCULAR HEMOGLOBIN 29.9 pg (28-32); MEAN CORPUSCULAR HGB CONC 29.8 g/dL (31-35); MEAN CORPUSCULAR VOLUME 100.4 fL (81-99); MONOCYTES # (AUTO) 1.1 (0.2-0.8); MONOCYTES % 4.4 % (4.4-11.3); NEUTROPHILS # (AUTO) 20.3 (2.1-6.9); NEUTROPHILS % 80.5 % (38.7-80.0); PLATELET COUNT 314 x10e3/uL (140-360); RED BLOOD COUNT 2.84 x10e6/uL (4.3-5.7); RED CELL DISTRIBUTION WIDTH 15.5 % (11.7-14.4)
[2021-09-16 06:35] LABS: ALBUMIN 1.4 g/dL (3.5-5.0); ALBUMIN/GLOBULIN RATIO 0.3 (0.8-2.0); CREATININE, SERUM 0.97 mg/dL (0.72-1.25); MAGNESIUM 1.9 MG/DL (1.3-2.1); POTASSIUM 3.5 mmol/L (3.5-5.1)
[2021-09-16 06:52] LABS: CALCIUM 7.9 mg/dL (8.4-10.2)
[2021-09-16 07:19] LABS: ANION GAP 13.5 mmol/L (8-16)
[2021-09-16 07:25] LABS: ABG PH 7.24 (7.35-7.45)
[2021-09-16 07:26] LABS: ABG HCO3 32 mmol/L (22-26); ABG PCO2 76 mmHg (35-45); ABG PO2 54 mmHg (80-105); ABG TCO2 34
[2021-09-16] MEDS: METOPROLOL TARTRATE 50 MG TAB PO SCH (09:00)
[2021-09-16] MEDS: SENNA-S TABLET PO SCH (09:10)
[2021-09-16] MEDS: FUROSEMIDE INJ 10 MG/ML 4 ML VIAL IV SCH ×2 (09:10→17:34)
[2021-09-16] MEDS: FOLIC ACID 1 MG TAB NG SCH (09:10)
[2021-09-16] MEDS: FAMOTIDINE 20 MG/2 ML VIAL IV SCH ×2 (09:10→17:34)
[2021-09-16] MEDS: AMIODARONE HCL 200 MG TAB PO SCH ×2 (09:10→17:34)
[2021-09-16] MEDS: THIAMINE HCL INJ 100 MG/ML 2ML VIAL IV SCH (09:10)
[2021-09-16] MEDS: ENOXAPARIN SOD INJ 40 MG/0.4 ML SYR SC SCH (09:11)
[2021-09-16] MEDS: BALSAM PERU/CASTOR OIL 60 GM OINT...G. TP SCH (09:11)
[2021-09-16 10:19] LABS: BAND NEUTROPHILS % (MANUAL) 1 %; LYMPHOCYTES % (MANUAL) 6 % (19-48); METAMYELOCYTES % (MANUAL) 2 % (0-0); MONOCYTES % (MANUAL) 3 % (3.4-9.0); MYELOCYTES % (MANUAL) 2 % (0-0); NEUTROPHILS % (MANUAL) 86 % (40-74); NUCLEATED RED BLOOD CELLS 7; PLATELET ESTIMATE ADEQUATE; PLATELET MORPHOLOGY COMMENT NORMAL; RBC MORPHOLOGY COMMENT NORMAL
[2021-09-16] MEDS: METOPROLOL TARTRATE INJ 1 MG/ML VIAL IV PRN (21:17)
[2021-09-17] VITALS (32 sets, daily range): BP systolic 81–128; BP diastolic 42–63
[2021-09-17] MEDS: MIDAZOLAM HCL 5MG/ML 10ML VIAL 100 ML IV PRN ×3 (01:12→21:15)
[2021-09-17] MEDS: NOREPINEPHRINE 8 MG/D5W 250 ML 250 ML IV PRN ×5 (04:29→20:30)
[2021-09-17] MEDS: PIPERACILLIN/TAZOBACTAM 3.375 GM in SODIUM CHLORIDE 0.9% 50ML 50 ML IV SCH ×2 (06:07→11:54)
[2021-09-17] MEDS: FENTANYL 2000MCG/NS 250 250 ML IV SCH ×3 (06:08→19:01)
[2021-09-17 06:11] LABS: BASOPHILS # (AUTO) 0.2 (0.0-0.1); BASOPHILS % 0.6 % (0.0-1.0); EOSINOPHILS # (AUTO) 0.1 (0.0-0.4); EOSINOPHILS % 0.2 % (0.0-6.0); HEMATOCRIT 27.8 % (38.2-49.6); HEMOGLOBIN 8.2 g/dL (14.0-18.0); LYMPHOCYTES # (AUTO) 1.7 (1.0-3.2); LYMPHOCYTES % 6.3 % (18.0-39.1); MEAN CORPUSCULAR HEMOGLOBIN 29.9 pg (28-32); MEAN CORPUSCULAR HGB CONC 29.5 g/dL (31-35); MEAN CORPUSCULAR VOLUME 101.5 fL (81-99); MONOCYTES # (AUTO) 1.1 (0.2-0.8); MONOCYTES % 4.1 % (4.4-11.3); NEUTROPHILS # (AUTO) 21.5 (2.1-6.9); NEUTROPHILS % 81.4 % (38.7-80.0); PLATELET COUNT 295 x10e3/uL (140-360); RED BLOOD COUNT 2.74 x10e6/uL (4.3-5.7); RED CELL DISTRIBUTION WIDTH 16.3 % (11.7-14.4)
[2021-09-17 06:31] LABS: ALBUMIN 1.3 g/dL (3.5-5.0); ALBUMIN/GLOBULIN RATIO 0.3 (0.8-2.0); ANION GAP 13.2 mmol/L (8-16); CALCIUM 7.7 mg/dL (8.4-10.2); CREATININE, SERUM 0.99 mg/dL (0.72-1.25); POTASSIUM 3.2 mmol/L (3.5-5.1)
[2021-09-17 07:51] LABS: ABG PH 7.24 (7.35-7.45)
[2021-09-17 07:52] LABS: ABG HCO3 32 mmol/L (22-26); ABG PCO2 75 mmHg (35-45); ABG PO2 57 mmHg (80-105); ABG TCO2 34
[2021-09-17 08:21] LABS: BAND NEUTROPHILS % (MANUAL) 4 %; LYMPHOCYTES % (MANUAL) 6 % (19-48); METAMYELOCYTES % (MANUAL) 3 % (0-0); MONOCYTES % (MANUAL) 2 % (3.4-9.0); MYELOCYTES % (MANUAL) 1 % (0-0); NEUTROPHILS % (MANUAL) 83 % (40-74); NUCLEATED RED BLOOD CELLS 2
[2021-09-17 08:22] LABS: ANISOCYTOSIS MODERATE; HYPOCHROMASIA SLIGHT; PLATELET ESTIMATE ADEQUATE; PLATELET MORPHOLOGY COMMENT NORMAL; POLYCHROMASIA FEW; RBC MORPHOLOGY COMMENT ABNORMAL
[2021-09-17] MEDS: AMIODARONE HCL 200 MG TAB PO SCH ×2 (08:26→17:17)
[2021-09-17] MEDS: FOLIC ACID 1 MG TAB NG SCH (08:26)
[2021-09-17] MEDS: FAMOTIDINE 20 MG/2 ML VIAL IV SCH ×2 (08:26→17:17)
[2021-09-17] MEDS: FUROSEMIDE INJ 10 MG/ML 4 ML VIAL IV SCH ×2 (08:26→17:17)
[2021-09-17] MEDS: SENNA-S TABLET PO SCH (08:26)
[2021-09-17] MEDS: BALSAM PERU/CASTOR OIL 60 GM OINT...G. TP SCH (08:26)
[2021-09-17] MEDS: THIAMINE HCL INJ 100 MG/ML 2ML VIAL IV SCH (08:27)
[2021-09-17] MEDS: METOPROLOL TARTRATE INJ 1 MG/ML VIAL IV PRN (10:00)
[2021-09-17] MEDS ORDERED: POTASSIUM CHLORIDE 20MEQ/100ML 200 ML IV ONE (10:30)
[2021-09-17] MEDS: ROCURONIUM 1250MG/NS 250 250 ML IV PRN (10:50)
[2021-09-17] MEDS ORDERED: SODIUM CHLORIDE 0.9% 1000ML 1,000 ML ONE (11:55)
[2021-09-17] MEDS: PROPOFOL IV EMULSION 10MG/ML 100 ML IV PRN (13:37)
[2021-09-17] MEDS: VANCOMYCIN 250MG/5ML ORAL SOLN PO SCH (17:48)
[2021-09-18] VITALS (45 sets, daily range): BP systolic 67–125; BP diastolic 41–57
[2021-09-18] MEDS: NOREPINEPHRINE 8 MG/D5W 250 ML 250 ML IV PRN ×6 (00:26→21:00)
[2021-09-18] MEDS: VANCOMYCIN 250MG/5ML ORAL SOLN PO SCH ×4 (00:34→17:03)
[2021-09-18] MEDS: FENTANYL 2000MCG/NS 250 250 ML IV SCH ×5 (02:11→20:28)
[2021-09-18 05:46] LABS: BASOPHILS % 0.1 % (0.0-1.0); EOSINOPHILS # (AUTO) 0.1 (0.0-0.4); EOSINOPHILS % 0.2 % (0.0-6.0); HEMATOCRIT 25.8 % (38.2-49.6); LYMPHOCYTES # (AUTO) 2.1 (1.0-3.2); LYMPHOCYTES % 6.8 % (18.0-39.1); MEAN CORPUSCULAR HEMOGLOBIN 30.8 pg (28-32); MEAN CORPUSCULAR VOLUME 99.2 fL (81-99); MONOCYTES % 3.3 % (4.4-11.3); NEUTROPHILS # (AUTO) 25.3 (2.1-6.9); NEUTROPHILS % 80.6 % (38.7-80.0); PLATELET COUNT 317 x10e3/uL (140-360); RED CELL DISTRIBUTION WIDTH 16.9 % (11.7-14.4)
[2021-09-18 06:06] LABS: ALBUMIN 1.4 g/dL (3.5-5.0); ALBUMIN/GLOBULIN RATIO 0.3 (0.8-2.0); ANION GAP 14.3 mmol/L (8-16); CALCIUM 7.6 mg/dL (8.4-10.2); CREATININE, SERUM 1.08 mg/dL (0.72-1.25); POTASSIUM 3.3 mmol/L (3.5-5.1)
[2021-09-18] MEDS: PROPOFOL IV EMULSION 10MG/ML 100 ML IV PRN ×2 (06:47→20:30)
[2021-09-18] MEDS: MIDAZOLAM HCL 5MG/ML 10ML VIAL 100 ML IV PRN ×2 (06:55→15:35)
[2021-09-18 07:17] LABS: ABG PH 7.23 (7.35-7.45)
[2021-09-18 07:18] LABS: ABG HCO3 33 mmol/L (22-26); ABG PCO2 79 mmHg (35-45); ABG PO2 56 mmHg (80-105); ABG TCO2 35
[2021-09-18] MEDS: SENNA-S TABLET PO SCH (08:00)
[2021-09-18] MEDS: AMIODARONE HCL 200 MG TAB PO SCH ×2 (08:00→17:02)
[2021-09-18] MEDS: FUROSEMIDE INJ 10 MG/ML 4 ML VIAL IV SCH ×2 (08:00→17:02)
[2021-09-18] MEDS: BALSAM PERU/CASTOR OIL 60 GM OINT...G. TP SCH (08:00)
[2021-09-18] MEDS: FAMOTIDINE 20 MG/2 ML VIAL IV SCH ×2 (08:00→17:02)
[2021-09-18] MEDS: FOLIC ACID 1 MG TAB NG SCH (08:00)
[2021-09-18] MEDS: THIAMINE HCL INJ 100 MG/ML 2ML VIAL IV SCH (08:00)
[2021-09-18 11:09] LABS: BAND NEUTROPHILS % (MANUAL) 3 %; LYMPHOCYTES % (MANUAL) 1 % (19-48); METAMYELOCYTES % (MANUAL) 1 % (0-0); MONOCYTES % (MANUAL) 3 % (3.4-9.0); MYELOCYTES % (MANUAL) 1 % (0-0); NEUTROPHILS % (MANUAL) 91 % (40-74); NUCLEATED RED BLOOD CELLS 6; PLATELET ESTIMATE ADEQUATE; PLATELET MORPHOLOGY COMMENT NORMAL; RBC MORPHOLOGY COMMENT NORMAL
[2021-09-18] MEDS ORDERED: POTASSIUM CHLORIDE 20MEQ/100ML 100 ML IV ONE (14:00)
[2021-09-18] MEDS: ROCURONIUM 1250MG/NS 250 250 ML IV PRN (14:15)
[2021-09-18] MEDS: PHENYLEPHRINE 10MG/ML VIAL 40 MG in DEXTROSE 5% 250ML 246 ML IV SCH ×2 (18:07→21:30)
[2021-09-19] VITALS (13 sets, daily range): BP systolic 82–113; BP diastolic 44–55
[2021-09-19] MEDS: NOREPINEPHRINE 8 MG/D5W 250 ML 250 ML IV PRN ×4 (00:30→09:55)
[2021-09-19] MEDS: VANCOMYCIN 250MG/5ML ORAL SOLN PO SCH ×2 (00:35→05:49)
[2021-09-19] MEDS: MIDAZOLAM HCL 5MG/ML 10ML VIAL 100 ML IV PRN ×2 (00:45→09:56)
[2021-09-19] MEDS: PHENYLEPHRINE 10MG/ML VIAL 40 MG in DEXTROSE 5% 250ML 246 ML IV SCH ×3 (01:00→11:29)
[2021-09-19] MEDS: FENTANYL 2000MCG/NS 250 250 ML IV SCH (04:50)
[2021-09-19 05:30] LABS: BASOPHILS # (AUTO) 0.1 (0.0-0.1); BASOPHILS % 0.3 % (0.0-1.0); EOSINOPHILS # (AUTO) 0.1 (0.0-0.4); EOSINOPHILS % 0.2 % (0.0-6.0); HEMATOCRIT 24.5 % (38.2-49.6); HEMOGLOBIN 7.2 g/dL (14.0-18.0); LYMPHOCYTES # (AUTO) 3.4 (1.0-3.2); MEAN CORPUSCULAR HEMOGLOBIN 30.4 pg (28-32); MEAN CORPUSCULAR HGB CONC 29.4 g/dL (31-35); MEAN CORPUSCULAR VOLUME 103.4 fL (81-99); MONOCYTES # (AUTO) 1.3 (0.2-0.8); MONOCYTES % 3.2 % (4.4-11.3); NEUTROPHILS # (AUTO) 31.8 (2.1-6.9); NEUTROPHILS % 75.2 % (38.7-80.0); PLATELET COUNT 389 x10e3/uL (140-360); RED BLOOD COUNT 2.37 x10e6/uL (4.3-5.7); RED CELL DISTRIBUTION WIDTH 17.1 % (11.7-14.4)
[2021-09-19 05:46] LABS: ALBUMIN 1.3 g/dL (3.5-5.0); ALBUMIN/GLOBULIN RATIO 0.3 (0.8-2.0); ANION GAP 13.5 mmol/L (8-16); CALCIUM 7.5 mg/dL (8.4-10.2); CREATININE, SERUM 1.63 mg/dL (0.72-1.25); POTASSIUM 3.5 mmol/L (3.5-5.1)
[2021-09-19] MEDS: SENNA-S TABLET PO SCH (08:29)
[2021-09-19] MEDS: FAMOTIDINE 20 MG/2 ML VIAL IV SCH (08:29)
[2021-09-19] MEDS: THIAMINE HCL INJ 100 MG/ML 2ML VIAL IV SCH (08:29)
[2021-09-19] MEDS: FOLIC ACID 1 MG TAB NG SCH (08:29)
[2021-09-19] MEDS: BALSAM PERU/CASTOR OIL 60 GM OINT...G. TP SCH (08:29)
[2021-09-19] MEDS: AMIODARONE HCL 200 MG TAB PO SCH (08:29)
[2021-09-19] MEDS: FUROSEMIDE INJ 10 MG/ML 4 ML VIAL IV SCH (08:29)
[2021-09-19] MEDS: PROPOFOL IV EMULSION 10MG/ML 100 ML IV PRN (09:15)
[2021-09-19] MEDS ORDERED: VASOPRESSIN 60 UNIT in DEXTROSE 5% 50ML 57 ML IV PRN (10:30)
[2021-09-19] MEDS ORDERED: MEROPENEM 500 MG in SODIUM CHLORIDE 0.9% 50ML 50 ML IV SCH (11:00)
[2021-09-19 11:21] LABS: BAND NEUTROPHILS % (MANUAL) 3 %; LYMPHOCYTES % (MANUAL) 14 % (19-48); METAMYELOCYTES % (MANUAL) 4 % (0-0); MONOCYTES % (MANUAL) 5 % (3.4-9.0); MYELOCYTES % (MANUAL) 4 % (0-0); NEUTROPHILS % (MANUAL) 70 % (40-74); NUCLEATED RED BLOOD CELLS 25; PLATELET ESTIMATE ADEQUATE; PLATELET MORPHOLOGY COMMENT NORMAL
[2021-09-19 11:22] LABS: RBC MORPHOLOGY COMMENT NORMAL
[2021-09-19 11:57] LABS: ABG PH 7.13 (7.35-7.45)
[2021-09-19 11:58] LABS: ABG HCO3 29 mmol/L (22-26); ABG PCO2 86 mmHg (35-45); ABG PO2 55 mmHg (80-105); ABG TCO2 32
[2021-09-19] MEDS ORDERED: VANCOMYCIN 250MG/5ML ORAL SOLN PO SCH (12:00)
== END 2021-09-19 15:04 | disposition expired | DRG 207 ==
LOC: ER 10:15 → ERHOLD 11:38 → MED/SURG3 16:03 → IMCU 08-22 15:11 → ICU 08-27 23:54
PROVIDERS: ADMIT Internal Medicine; ATTEND Internal Medicine
PROC: 3E0333Z Introduction of Anti-inflammatory into Peripheral Vein, Percutaneous Approach (ICD-10-PCS; 2021-08-19)
PROC: 3E0333Z Introduction of Anti-inflammatory into Peripheral Vein, Percutaneous Approach (ICD-10-PCS; 2021-08-20)
PROC: 5A0935A Assistance with Respiratory Ventilation, Less than 24 Consecutive Hours, High Flow/Velocity Cannula (ICD-10-PCS; 2021-08-20)
PROC: 02HV33Z Insertion of Infusion Device into Superior Vena Cava, Percutaneous Approach (ICD-10-PCS; 2021-08-25)
PROC: 5A09357 Assistance with Respiratory Ventilation, Less than 24 Consecutive Hours, Continuous Positive Airway Pressure (ICD-10-PCS; 2021-08-30)
PROC: 5A1955Z Respiratory Ventilation, Greater than 96 Consecutive Hours (ICD-10-PCS; principal; 2021-08-31)
PROC: 0BH18EZ Insertion of Endotracheal Airway into Trachea, Via Natural or Artificial Opening Endoscopic (ICD-10-PCS; 2021-08-31)
PROC: 3E043XZ Introduction of Vasopressor into Central Vein, Percutaneous Approach (ICD-10-PCS; 2021-09-02)
DX: U07.1 COVID-19 (principal); J12.82 Pneumonia due to coronavirus disease 2019; J96.01 Acute respiratory failure with hypoxia; J69.0 Pneumonitis due to inhalation of food and vomit; R65.21 Severe sepsis with septic shock; A41.89 Other specified sepsis; N17.0 Acute kidney failure with tubular necrosis; B17.8 Other specified acute viral hepatitis; E87.4 Mixed disorder of acid-base balance; E87.0 Hyperosmolality and hypernatremia; D64.9 Anemia, unspecified; I25.10 Atherosclerotic heart disease of native coronary artery without angina pectoris; I25.2 Old myocardial infarction; Z95.1 Presence of aortocoronary bypass graft; Z87.891 Personal history of nicotine dependence; R00.0 Tachycardia, unspecified; E83.51 Hypocalcemia; E87.5 Hyperkalemia; I48.91 Unspecified atrial fibrillation; Z66 Do not resuscitate; I10 Essential (primary) hypertension
CPT/HCPCS: 36415; 36569; 36600; 71045; 74018; 80048; 80053; 80061; 82550; 82553; 82805; 82948; 83735; 83880; 84484; 85025; 85610; 85730; 87040; 93005; 93306; 94003; 94660; 94799; 99251; 99285; J0330; J0360; J0456; J1100; J1650; J1817; J1940; J2185; J2250; J2370; J2543; J2765; J2997; J3370; J3410; J3411; J3480; J7030; J7040; J7050; J7121; J7799; P9047; U0002